=== PATIENT | female | born 1955 | race Caucasian/White ===

== ENCOUNTER → 2017-10-17 09:41 | Outpatient (CLI) | payer OTHER, SELFPAY ==
[2017-10-17 10:45] LABS: Thyroid Stim Hormone (TSH) 1.54 uIU/mL (0.358-3.74)
== END ==
PROVIDERS: Family Provider Family Medicine Geriatric Medicine; PCP Family Medicine Geriatric Medicine; Visit Provider Internal Medicine Endocrinology, Diabetes & Metabolism
DX: E05.00 Thyrotoxicosis with diffuse goiter without thyrotoxic crisis or storm (principal)
CPT/HCPCS: 36415; 84443

== ENCOUNTER → 2017-11-14 14:38 | Outpatient (CLI) | payer OTHER, SELFPAY ==
--- NOTE | 2017-11-14 14:41 | BI_ITS ---
MAMMOGRAPHY - BILATERAL SCREENING REASON FOR EXAM: Female, 62 years old. Routine annual screening examination. PERTINENT HISTORY: Non-contributory. TECHNIQUE: Digital bilateral breast tomás (3D mammographic acquisition) in the CC and MLO projections. 2-D mediolateral oblique (MLO) and craniocaudad (CC) views of both breasts were obtained. CAD: Full Field Digital Mammography with Computer Added Detection was performed. COMPARISON: Comparison is made with prior outside examination dated September 03, 2015. FINDINGS: Breast Composition: The breasts are heterogeneously dense, which may obscure small masses. There are no dominant masses or suspicious calcifications. No other significant abnormalities are identified. There has been no significant change since the prior study. BI/SCREENING MAMM (CAD), BILAT IMPRESSION: Stable bilateral screening mammogram. Yearly follow-up mammogram recommended. (A) ASSESSMENT CATEGORY: BIRADS Category 1: Negative. A letter regarding these results will be sent to the patient by the facility within 30 days. Approximately 10% of breast cancers are not detected by mammography. A normal mammogram should not delay biopsy of a clinically suspicious abnormality. [id number] Electronically Signed: Pedro Marcum MD at 9:29 EDT Tel [phone], Service support ,
== END ==
PROVIDERS: Family Provider Family Medicine Geriatric Medicine; PCP Family Medicine Geriatric Medicine; Visit Provider Obstetrics & Gynecology
DX: Z12.31 Encounter for screening mammogram for malignant neoplasm of breast (principal)
CPT/HCPCS: 77063; 77067

== ENCOUNTER → 2018-01-16 08:19 | Outpatient (CLI) | payer OTHER, SELFPAY ==
[2018-01-16 09:44] LABS: Thyroid Stim Hormone (TSH) 1.28 uIU/mL (0.358-3.74)
== END ==
PROVIDERS: Family Provider Family Medicine Geriatric Medicine; PCP Family Medicine Geriatric Medicine; Visit Provider Internal Medicine Endocrinology, Diabetes & Metabolism
DX: E05.00 Thyrotoxicosis with diffuse goiter without thyrotoxic crisis or storm (principal)
CPT/HCPCS: 36415; 84443

== ENCOUNTER → 2018-04-18 09:57 | Outpatient (CLI) | payer MEDICARE, OTHER, SELFPAY ==
[2018-04-18 11:37] LABS: Thyroid Stim Hormone (TSH) 1.45 uIU/mL (0.358-3.74)
== END ==
PROVIDERS: Family Provider Family Medicine Geriatric Medicine; PCP Family Medicine Geriatric Medicine; Referring Provider Internal Medicine Endocrinology, Diabetes & Metabolism; Visit Provider Internal Medicine Endocrinology, Diabetes & Metabolism
DX: E05.00 Thyrotoxicosis with diffuse goiter without thyrotoxic crisis or storm (principal)
CPT/HCPCS: 36415; 84443

== ENCOUNTER → 2018-06-21 14:01 | Outpatient (CLI) | payer MEDICARE, OTHER, SELFPAY ==
[2017-10-20 10:31] VITALS: BMI 29.6
[2018-06-21 15:55] LABS: Absolute Lymphocyte Count 2.52 X10^3/ul (0.83-4.51); Absolute Neutrophil Count 5.6 X10^3/uL (2.0-7.7); Basophil# 0.05 X10^3/uL; Basophil% 0.5 % (0-1); Eosinophil# 0.72 X10^3/uL; Eosinophils% 7.7 % (0-5); Hematocrit 43.6 % (37-47); Hemoglobin 14.4 g/dl (12.0-15.0); Lymphocyte # 2.52 X10^3/ul (4.0); Mean Corpuscular Hgb 31.2 pg (27.0-32.0); Mean Corpuscular Volume 94.4 fL (81-99); Mean Platelet Vol. 10.6 fl (6.2-12.0); Monocyte# 0.44 X10^3/uL; Monocyte% 4.7 % (0-10); Neutrophil # 5.58 X10^3/uL (2.7-7.7); Platelet Count 241 K/mm3 (150-450); RBC Distribution Width SD 44.7 fl (35.1-43.9); Red Blood Count 4.62 M/mm3 (4.2-5.4); White Blood Count 9.3 K/mm3 (4.4-11.0)
[2018-06-21 16:14] LABS: POSITIVE COUNT NO; POSITIVE DIFFERENTIAL NO; POSITIVE MORPHOLOGY NO
[2018-06-21 16:20] LABS: Vitamin D,25 Hydroxy 40.9 ng/mL (29.95-100.01)
[2018-06-21 16:33] LABS: AST(SGOT) 13 U/L (15-37); Alanine Aminotransfer ALT/SGPT 25 U/L (13-56); Albumin, Serum 3.9 g/dL (3.2-5.0); Alkaline Phosphatase 67 U/L (45-117); Anion Gap 7 (5-15); BUN 10 mg/dL (7-18); Calcium,Total 8.9 mg/dL (8.5-10.1); Chloride 104 mmol/L (98-107); Creatinine, Serum 0.91 mg/dL (0.55-1.02); EST Glomerular Filtration Rate 66 mL/min (>60); Est Glom Filt Rate - Afr Amer 80 mL/min (>60); Glucose 81 mg/dL (74-106); Potassium 4.3 mmol/L (3.5-5.1); Protein, Total 7.9 g/dL (6.4-8.2); Sodium Level 137 mmol/L (136-145); Thyroid Stim Hormone (TSH) 1.73 uIU/mL (0.358-3.74)
--- OUTSIDE RECORDS SUMMARY | 2018-08-07 18:30 | XMS RPT_ITS ---
:1955 Author Organization OHIP Support Name Relationship Address Phone OMID APONTE Unavailable [address] + [place] [address] RIGO, CHANDRA Unavailable [address] + [place] [address] R Unavailable Unavailable Unavailable FADI, OMID Unavailable [address] + [place] [address] RIGO, CHANDRA Unavailable [address] + [place] [address] R Unavailable Unavailable Unavailable FADI, OMID Unavailable [address] + [place] [address] RIGO, CHANDRA Unavailable [address] + [place] [address] R Unavailable Unavailable Unavailable FADI, OMID Unavailable [address] + [place] [address] RIGO, CHANDRA Unavailable [address] + [place] [address] R Unavailable Unavailable Unavailable FADI, OMID Unavailable [address] + [place] [address] RIGO, CHANDRA Unavailable [address] + [place] [address] R Unavailable Unavailable Unavailable FADI, OMID Unavailable [address] + [place] [address] IRGO, CHANDRA Unavailable [address] + [place] [address] R Unavailable Unavailable Unavailable FADI, OMID Unavailable [address] + [place] [address] RIGO, CHANDRA Unavailable [address] + [place] [address] R Unavailable Unavailable Unavailable OMID APONTE Unavailable [address] + [place] [address] RIGOCHANDRA Unavailable [address] [facility] + [place] [address] R Unavailable Unavailable Unavailable Care Team Providers Name Role Phone Annita Reeder Admitting Unavailable Annita Reeder Attending Unavailable No Doctor Assigned, Nodr Primary Care Unavailable Saul, Yonatan Chi Attending Unavailable Saul, Yonatan Chi Primary Care Unavailable Saul, Yonatan Chi Attending Unavailable Saul, Yonatan Chi Referring Unavailable Saul, Yonatan Chi Primary Care Unavailable NOVY, ANNITA Attending Unavailable NOVY, ANNITA Referring Unavailable Saul, Yonatan Chi Primary Care Unavailable Chante Galvin Attending Unavailable Saul, Yonatan Chi Referring Unavailable Saul, Yonatan Chi Primary Care Unavailable Chante Galvin Attending Unavailable Saul, Yonatan Chi Primary Care Unavailable NOVY, ANNITA Attending Unavailable NOVY, ANNITA Referring Unavailable Saul, Yonatan Chi Primary Care Unavailable NOVANNITA Graff Attending Unavailable NOVY, ANNITA Referring Unavailable Saul, Yonatan Chi Primary Care Unavailable NOVY, ANNITA Attending Unavailable NOVY, ANNITA Referring Unavailable Saul, Yonatan Chi Primary Care Unavailable PROBLEMS PROBLEMS DATE TYPE CONDITION / CODE ATTENDING STATUS SOURCE 07/26/2018 Unknown E05.00 - ANNITA REEDER 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 Hospital without thyrotoxic Repository crisis or storm / E05.00(ICD-10) 10/20/2017 Unknown Z01.419 - Encounter Jeremias Galvin for gynecological [facility] (general) (routine) Repository without abnormal findings / Z01.419(ICD-10) PROCEDURES PROCEDURES No Procedure Records FoundRESULTS RESULTS THYROID STIM HORMONE Collected: 07/26/2018 Status: F Source: [place] (TSH) 11:05 AM [facility] REPOSITORY TYPE CODE TESTS RESULT OUT OF RANGE REFERENCE UNITS LAB L501.9520 0.358-3.74 uIU/mL Normal TSH 1.52 Performed By: #### L501.9520 #### [place] [facility] [place] [place] Laboratory [address] [place], [address] LUNG Observed: 06/28/2018 Status: F Source: [place] SCREENING 6:38 AM [facility] REPOSITORY [facility] Imaging Services [address] [place] [address] Lung Screening MR#: [id number] Acct: [id number] Name: JOSE ENRIQUE APONTE Rep #: [id number] : 1955 F 63 From: Jeronimo Delarosa MD PCP: Yonatan Davila MD, Chi Status: REG CLI Study: Low Dose CT Lung Screening Date of Exam: 06/28/18 Exam# [id number] Ordering Dr: Yonatan Davila MD STUDY: LOW DOSE CT LUNG CANCER SCREENING REASON FOR EXAM: Female, 63 years old. Tobacco abuse, prior smoker one pack per day 40 years. Asthma. Screening. RADIATION DOSAGE (If Supplied By Facility): CTDIvol = ( 3.02 ) mGy, DLP = ( 107.59 ) mGycm TECHNIQUE: No contrast was administered. Low dose technique was utilized (average mAS-38 and kVp 120). 1.25 mm axial source images with a slice interval of 1.25- mm were reconstructed in lung windows. Coronal and sagittal 2-D MPR Nodule measured using lung windows on PACS and/or independent workstation with automated measurement of minimum and maximum diameter. Nodule measurement reported as average diameter rounded to the nearest whole number. Growth is defined as an increase ins size of greater than 1.5 mm. COMPARISON: CT chest 07/10/2015 FINDINGS: Total lung nodules (excluding granulomas): There are a few scattered tiny pulmonary nodules. Calcified pulmonary nodule left upper lobe series 2 image 66, 3 mm. Right lower lobe anterior segment calcified pulmonary nodule 3 mm. A few additional smaller noncalcified pulmonary nodules bilaterally. No frankly suspicious lesions. Emphysema: There is generalized pulmonary hyperlucency consistent with underlying COPD without raj features of centrilobular or paraseptal emphysema. There is mild bronchial wall thickening in the upper and lower lungs, chronic inflammatory. Impression of subtle tiny groundglass centrilobular pulmonary nodules in the upper lungs, a few in the lower lungs, potentially reflecting hypersensitivity pneumonitis. Small areas of scar with subsegmental atelectasis in the right middle lobe and lingula. Endobronchial lesion: There are no endobronchial lesions. Aorta: Nonaneurysmal ectasia of the ascending aorta and proximal arch measuring up to 3.4 cm. Moderate arch atherosclerosis. Coronary arteries: Three-vessel coronary after acrotic calcifications. Heart: No cardiomegaly. Pulmonary artery: Nondilated. Mediastinal nodes: Several small chronic-appearing lymph nodes of the mediastinum, not pathologically enlarged. No apparent hilar lymphadenopathy. Other chest and abdominal findings: No other significant thoracic abnormalities are evident. CT/Low Dose CT Lung Screening IMPRESSION: ACR Lung RADS Category 2 (benign appearance, less than 1% chance of malignancy). A few tiny scattered pulmonary nodules are present, solid or calcified, less than 3 mm. Subtle impression of multiple tiny groundglass centrilobular pulmonary nodules in particular within the upper lungs, chronic appearance, possibly reflecting sequela of hypersensitivity pneumonitis, possibly associated with sequela of smoking history, and probably associated with the patient's mild chronic-appearing bronchial wall thickening. Prominent three-vessel coronary calcifications. Nonaneurysmal ectasia of the ascending aorta and proximal arch, less than 4 cm. Recommendation: Continue annual low dose screening chest CT. IMPORTANT NOTES FOR USE: ACR Lung-RADS Version 1.0 Assessment Categories Release Date: November 05, 2013 Category: Coded 0-4 bases on nodule(s) with highest degree of suspicion. Negative screen is defined as categories 1 and 2; a positive screen is defined as categories 3 and 4. Category 3 and 4A nodules that are unchanged on interval CT should be coded as category 2, and individuals returned to screening in 12 months. Category 4X: Category 3 or 4 nodules with additional imaging findings that increase the suspicion of lung cancer, such as spiculation, GGN that doubles in size in 1 year, enlarged lymph notes, etc. Category Modifiers: S (significant finding unrelated to lung cancer) and C (prior history of treated lung cancer) may be added to the 0-4 Lung-RADS Electronically Signed: Jeronimo Delarosa MD at 17:01 EST Tel , Service support , CC: Yonatan Davila MD Police Surgeon: Signed CBC W/DIFF, AUTOMATED Collected: 06/21/2018 Status: F Source: [place] 2:05 PM [facility] REPOSITORY TYPE CODE TESTS RESULT OUT OF RANGE REFERENCE UNITS LAB L100.1000 4.4-11.0 K/mm3 Normal WBC 9.3 LAB L100.1200 4.2-5.4 M/mm3 Normal RBC 4.62 LAB L100.1300 12.0-15.0 g/dl Normal HGB 14.4 LAB L100.1400 37-47 % Normal HCT 43.6 LAB L100.1500 81-99 fL Normal MCV 94.4 LAB L100.1600 27.0-32.0 pg Normal MCH 31.2 LAB L100.1700 32-36 g/gl Normal MCHC 33.0 LAB L100.1810 11.6-14.6 % Normal RDW CV 13.0 LAB L100.1820 35.1-43.9 fl High RDW SD 44.7 LAB L100.1900 150-450 K/mm3 Normal PLT 241 LAB L100.2000 6.2-12.0 fl Normal MPV 10.6 LAB L100.2100 47-70 % Normal NEUT% 60.0 LAB L100.2200 19-41 % Normal LY% 27.0 LAB L100.2300 0-10 % Normal MONO% 4.7 LAB L100.2400 0-5 % High EO% 7.7 LAB L100.2500 0-1 % Normal BASO% 0.5 LAB L100.2550 0.0-0.9 % Normal IM GRAN % 0.100 Result Comment: IG% - Immature Granulocytes (promyelocytes, myelocytes and metamyelocytes) > 1% indicates that a LEFT SHIFT is Present. LAB L100.2620 2.0-7.7 X10 3/uL Normal Absolute Neut 5.6 LAB L100.2720 0.83-4.51 X10 3/ul Normal Absolute Lymph 2.52 Performed By: #### L100.0100 #### [facility] Laboratory [address], [place], [id number] VITAMIN D,25 HYDROXY Collected: 06/21/2018 Status: F Source: [place] 2:05 PM [facility] REPOSITORY TYPE CODE TESTS RESULT OUT OF RANGE REFERENCE UNITS LAB L506.1000 29.95-100.01 ng/mL Normal Vitamin D 40.9 25-OH Result Comment: Vitamin D 25(OH) Status Range Deficiency <20 ng/mL (50nmol/L) Insuffciency 20 - 30 ng/mL (50 - 75 nmol/L) Sufficiency 30 - 100 ng/mL (75 - 250 nmol/L) Toxicity >100 ng/mL (>250 nmol/L) Performed By: #### L506.1000 #### [facility] Laboratory [address] [place], [address] COMPREHENSIVE METABOLIC Collected: 06/21/2018 Status: F Source: [place] [facility] 2:05 PM [facility] REPOSITORY TYPE CODE TESTS RESULT OUT OF RANGE REFERENCE UNITS LAB L501.0100 74-106 mg/dL Normal GLU 81 Result Comment: Please note revised GLUCOSE reference range effective 2017. LAB L501.1000 7-18 mg/dL Normal BUN 10 LAB L501.1100 0.55-1.02 mg/dL Normal CREAT,SERUM 0.91 Result Comment: The validity of the calculated GFR AND GFRAA in patients over 70 years has not been determined. Clinical correlation is essential. LAB L501.1110 >60 mL/min Normal EST GFR 66 Result Comment: Non- GFR Calc LAB L501.1115 >60 mL/min Normal EST GFR - AA 80 Result Comment: GFR Calc LAB L501.1300 10-20 RATIO Normal BUN/CRE 11.0 LAB L501.1500 6.4-8.2 g/dL T Normal PROT 7.9 LAB L501.1800 3.2-5.0 g/dL Normal ALB 3.9 LAB L501.1950 2.2-4.2 g/dL Normal GLOB 4.0 LAB L501.2000 0.9-2.4 RATIO Normal A/G 1.0 LAB L501.2200 8.5-10.1 mg/dL CA Normal 8.9 LAB L501.4100 15-37 U/L Low AST 13 LAB L501.4305 45-117 U/L Normal ALK P 67 LAB L501.4405 13-56 U/L Normal ALT 25 LAB L501.4600 0.20-1.00 mg/dL T Normal BILI 0.50 LAB L501.5300 136-145 mmol/L NA Normal 137 LAB L501.5600 3.5-5.1 mmol/L K Normal 4.3 LAB L501.5900 98-107 mmol/L CL Normal 104 LAB L501.6100 21.0-32.0 mmol/L Normal CO2 26.0 LAB L501.6200 5-15 Normal GAP 7 Performed By: #### L500.4050, L501.9520 #### [facility] Laboratory [address] [place], [address] THYROID STIM HORMONE Collected: 06/21/2018 Status: F Source: [place] (TSH) 2:05 PM [facility] REPOSITORY TYPE CODE TESTS RESULT OUT OF RANGE REFERENCE UNITS LAB L501.9520 0.358-3.74 uIU/mL Normal TSH 1.73 Performed By: #### L500.4050, L501.9520 #### [facility] Laboratory [facility] [place], [address] THYROID STIM HORMONE Collected: 04/18/2018 Status: F Source: [place] (TSH) 10:18 AM [facility] REPOSITORY TYPE CODE TESTS RESULT OUT OF RANGE REFERENCE UNITS LAB L501.9520 0.358-3.74 uIU/mL Normal TSH 1.45 Performed By: #### L501.9520 #### [facility] [place], [address] THYROID STIM HORMONE Collected: 01/16/2018 Status: F Source: [place] (TSH) 8:26 AM [facility] REPOSITORY TYPE CODE TESTS RESULT OUT OF RANGE REFERENCE UNITS LAB L501.9520 0.358-3.74 uIU/mL Normal TSH 1.28 Performed By: #### L501.9520 #### [facility] [address] [place], [address] SCREENING MAMM (CAD), Observed: 11/14/2017 Status: F Source: [place] BIL[place] 2:41 PM [facility] REPOSITORY [facility] Imaging Services [address] [place] [address] SCREENING MAMM (CAD), BILAT MR#: [id number] Acct: [id number] Name: JOSE ENRIQUE APONTE Rep #: [id number] : 1955 F 62 From: Pedro Marcum MD PCP: Yonatan Davila MD, Chi Status: REG CLI Study: SCREENING MAMM (CAD), BILAT Date of Exam: 11/14/17 Exam# [id number] Ordering Dr: Chante Galvin MD MAMMOGRAPHY - BILATERAL SCREENING REASON FOR EXAM: Female, 62 years old. Routine annual screening examination. PERTINENT HISTORY: Non-contributory. TECHNIQUE: Digital bilateral breast tomás (3D mammographic acquisition) in the CC and MLO projections. 2-D mediolateral oblique (MLO) and craniocaudad (CC) views of both breasts were obtained. CAD: Full Field Digital Mammography with Computer Added Detection was performed. COMPARISON: Comparison is made with prior outside examination dated September 03, 2015. FINDINGS: Breast Composition: The breasts are heterogeneously dense, which may obscure small masses. There are no dominant masses or suspicious calcifications. No other significant abnormalities are identified. There has been no significant change since the prior study. BI/SCREENING MAMM (CAD), BILAT IMPRESSION: Stable bilateral screening mammogram. Yearly follow-up mammogram recommended. (A) ASSESSMENT CATEGORY: BIRADS Category 1: Negative. A letter regarding these results will be sent to the patient by the facility within 30 days. Approximately 10% of breast cancers are not detected by mammography. A normal mammogram should not delay biopsy of a clinically suspicious abnormality. [id number] Electronically Signed: Pedro Marcum MD at 9:29 EDT Tel [phone], Service support , CC: Chante Galvin MD; Yonatan Davila MD Police Surgeon: Signed STREET [employer]CH[employer] OFFICE VISIT Observed: 10/20/2017 Status: F Source: [place] REPORT 11:03 AM [facility] 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) Chief Complaint: Est annual Bonding Agent Required: No Is patient in pain?: No Allergies No Known Allergies Allergy (Unverified 10/20/17 10:32) Medications cholecalciferol (vitamin D3) 1,000 unit capsule 1,000 unit PO QDAY 10/20/17 [History Confirmed 10/20/17] methimazole 5 mg tablet 5 mg PO QDAY 10/20/17 [History Confirmed 10/20/17] Is last menstrual period known: No Post menopausal: Yes Patient : No : No PFSH Surgical History History of delivery (Acute) Family History Mother Cancer brain Father Heart disease Congestive heart disease Social History Smoking Status: Never smoker alcohol intake: current details: social substance use type: does not use caffeine: Yes frequency: 5-6 times per week seatbelt use: always do you feel safe at home: Yes additional social history: Omid- Both are retired Pregancy History 3 Elective abortions Hx Para 1 Spontaneous abortions Past Pregnancies Del. 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 dtr has one son- 4 years old, marlon Last PAP: 2017 normal History of abnormal PAP: no Last mammogram: due History of abnormal mammogram: Colon cancer screening: next year with quynh Other preventative health care screenings: per dr davila Female Reproductive History Questions: Metorrhagia: No, Sexually active: No ROS Const Constitutional: Reports as per HPI; denies poor appetite, fatigue, increased appetite, weight gain or weight loss Cardio Card: Denies chest pain Resp Resp: Denies dyspnea or cough GI GI: Reports as per HPI; denies bloating, abdominal pain, constipation, vomiting or nausea : Reports as per HPI and other; denies blood in urine, vaginal odor, vaginal itching, vaginal dryness, vaginal discharge, urinary urgency, urinary incontinence, urinary frequency, pelvic pain, painful urination, difficulty urinating, prolapse symptoms or nipple discharge Skin Skin/Breast: Denies breast pain, breast skin changes, nipple discharge, breast lump or changing lesions Exam Const General: cooperative, healthy appearing, comfortable, no acute distress, well developed, well groomed [facility] Head: normal to inspection, normocephalic Ears: hearing grossly normal bilaterally, external ears normal Nose: external nose normal Face and sinus: normal facial exam Neck Neck: normal visual inspection, full ROM, no lymphadenopathy Thyroid: thyroid normal Chest Chest palpation AND inspection: normal inspection of the chest Breast inspection: normal inspection of the breasts, normal inspection of the axillae Breast palpation: normal palpation of the breasts, normal palpation of the axillae, no axillary lymphadenopathy Resp Effort AND Inspection: normal respiratory effort GI Inspection: normal to inspection, non-distended Palpation: no guarding, soft, no hepatosplenomegaly General: bladder normal to palpation External Female Exam: normal external appearance, normal appearance of the urethra, no lesions Urethra: normal appearance of the urethra, normal palpation Speculum Exam - Vagina: normal appearance of the vagina, normal vaginal discharge Speculum Exam - Cervix: normal appearance of the cervix, no cervical discharge, no lesions, nontender Bimanual Exam- Vagina AND Uterus: No cervical tenderness, normal bimanual exam, uterine size normal, bladder normal to palpation, uterine mobility normal, uterine consistency normal, uterus non-tender, no cervical motion tenderness Bimanual Exam- Adnexa, other: normal adnexae, no adnexal masses, adnexae non-tender Skin General: no rashes or lesions noted Neuro General: alert, moves all extremities, no focal motor deficits Extrem General: no pedal edema, normal to inspection Psych Appearance: grossly normal Mental Status: mental status grossly normal Affect: normal affect Speech and Movement: speech and movement normal Attitude: cooperative Assessment AND Plan Problems 1. Encounter for gynecological examination without abnormal finding Z01.419 Plan Cervical cancer screening: up to date 2016 Breast cancer screening: mamm ordered other health maintenance examination reviewed and up to date. Encouraged maintenance of a healthy weight and active lifestyle and handout given. Calcium/vitamin D recommendations provided. Annual exam handout including recommendations for good health guidelines and basic screening information given. Problem list up to date, see problem list details for any additional plan information. Follow up in one year for annual health maintenance exam or sooner if needed. Orders Orders: Coding Level of Care Code Off vis,est,prev 40-64yrs Diagnoses Encounter for gynecological examination without abnormal finding Z01.419 Gynecological examination findings: abnormal findings ABSENT 10/20/17 1103 <Electronically signed by Chante Galvin MD> Date Chante Galvin MD Cosigner Signature: Date (if applicable) CC: THYROID STIM HORMONE Collected: 10/17/2017 Status: F Source: [place] (TSH) 9:46 AM [facility] REPOSITORY TYPE CODE TESTS RESULT OUT OF RANGE REFERENCE UNITS LAB L501.9520 0.358-3.74 uIU/mL Normal TSH 1.54 Performed By: #### L501.9520 #### [facility] [address] [place], [address] US THYROID Observed: 10/17/2017 Status: F Source: [facility] 8:47 AM [facility] REPOSITORY Exam Date/Time: 10/17/2017 09:14 EDT Reason for Exam: NONTOXIC MULTINODULAR GOITER Report THYROID ULTRASOUND FROM 10/17/2017. COMPARISON: Most recent comparison is 10/11/2016. Comparison also made to 04/17/2015. FINDINGS: Mandujano scale and color Doppler performed. The right thyroid is 5.5 x 2.6 x 2.1 cm. The thyroid gland is heterogeneous in echotexture. There is an isoechoic to hyperechoic nodule in the inferior right gland measuring 9 mm maximally. The hypoechoic mass previously seen posterior inferior right gland measuring up to 1.5 cm is not clearly demonstrated. An isoechoic nodule is seen in the mid right gland which measures up to 8 mm in diameter previously measuring 9 mm. More inferiorly, an isoechoic nodule measures 9 mm previously measuring 9 mm. No developing hypoechoic solid masses in the right thyroid. The left thyroid gland measures 4.4 x 2.2 x 2.1 cm. It is heterogeneous in echotexture without a discrete mass. Thyroid isthmus is unremarkable. IMPRESSION: 1. Heterogeneous thyroid gland with small isoechoic to slightly hyperechoic nodules in the mid and inferior right gland. These are TI- RADS 3 lesions which does not require specific imaging follow up as size is of less than 1.5 cm. 2. Previously seen 1.5 cm hypoechoic mass at the inferior pole the right gland is either resolved or significantly smaller now measuring no greater than 9 mm. No specific follow up required at this size. 3. No new findings. FINAL REPORT Dictated: 10/17/2017 12:42 pm Chavez Wright MD Signed (Electronic Signature): 10/17/2017 12:42 pm Signed by: Chavez Wright MD Technologist: SAAD ALLERGIES ALLERGIES DATE TYPE / CODE NAME / CODE REACTION SEVERITY SOURCE 10/20/2017 Drug No Known Unknown [facility] Allergy/416 Allergies/Y99408 Hospital 710568(SNOM 0388(RXNORM) Repository ED CT) Drug/441982 No Known [facility] 003(SNOMED Allergies [facility] CT) System Repository ENCOUNTERS ENCOUNTERS ADMIT/DISCHARGE ACCOUNT ADMITTING ENCOUNTER LOCATION SOURCE NUMBER CLASS 07/26/2018 [id number] Ambulatory [facility] ing:LAB Repository 06/28/2018 [id number] [facility] ing:CT Repository 06/21/2018 [id number] [facility] ing:POLAB3 Repository 04/18/2018 [id number] [facility] ing:LAB Repository 01/16/2018 [id number] Ambulatory [place] [facility] ing:LAB Repository 11/14/2017 [id number] [facility] [place] [facility] Repository 10/20/2017/10/21/19 [id number] Ambulatory BMS[facility]:B [place] [address] [facility] Hospital Repository 10/17/2017 [id number] Ambulatory [place] [facility] ing:LAB Repository 10/17/2017/10/18/19 [id number] Annita Reeder [facility] [address] [facility] ing:SH.[facility] Repository PAYERS PAYERS ENCOUNTER GUARANTOR PAYER SUBSCRIBER SOURCE 07/26/2018 OMID [id number] Primary JOSE ENRIQUE S [place] [address] Insurance:MEDICARE GERBERDOB: [place], [place] PART A [facility] [id number] Hospital [address]Unu: (330) Number: Repository [phone] () [id number] Date:2018-07-26 07/26/2018 Secondary JOSE ENRIQUE S [place] Insurance:AARPPolicy GERBERDOB: Community Number: [id number] Hospital [id number] Repository Date:[id number], [place] [address]DH: 07/26/2018 Tertiary NOT GIVENUNK [place] Insurance:SELF PAY [facility] Hospital Number: Effective Repository Date:2018-07-26 06/28/2018 OMID [id number] Primary JOSE ENRIQUE S [place] [address] Insurance:MEDICARE GERBERDOB: [place], [place] PART A [facility] [id number] Hospital [address]Qcn: (330) Number: Repository [phone] (HP) [id number] Date:2018-06-21 06/28/2018 Secondary JOSE ENRIQUE S [place] Insurance:AARPPolicy GERBERDOB: Community Number: [id number] Hospital [id number] Repository Date:[id number] [address]YZ: 06/28/2018 Tertiary NOT GIVENUNK [place] Insurance:SELF PAY [facility] Effective Repository Date:2018-06-21 06/21/2018 OMID TAYLOR Primary JOSE ENRIQUE S [place] [address] Insurance:MEDICARE [place] BPolicy [id number] 66171Xha: (330) Number: Repository [phone] () [id number] Date:2018-06-21 06/21/2018 Secondary JOSE ENRIQUE S [place] Insurance:AARPPolicy GERBERDOB: Community Number: [id number] Hospital [id number] Repository Date:0840-08-30RZ [address], [place] [address]DA: 06/21/2018 Tertiary NOT GIVENUNK [place] Insurance:SELF PAY [facility] Number: Effective Repository Date:2018-06-21 04/18/2018 OMID [id number] Primary JOSE ENRIQUE S [place] Insurance:MEDICARE GERBERDOB: [facility], [place] PART A [facility] [id number] Hospital 95409Awh: (330) Number: Repository [phone] () [id number] Date:2018-04-18 04/18/2018 Secondary JOSE ENRIQUE S [place] Insurance:AARPPolicy GERBERDOB: Community Number: [id number] Hospital [id number] Repository Date:6411-14-23GA [address], [place] [address]SL: 04/18/2018 Tertiary NOT GIVENUNK [place] Insurance:[facility]LF [facility]Y [facility] Number: Effective Repository Date:2018-04-18 01/16/2018 OMID TAYLOR Primary JOSE ENRIQUE S [place] Insurance:AULTCAREPol GERBERDOB: [place] icy Number: [id number] Hospital 66102Kwd: (524) [id number] Repository [phone] () Date:8612-59-82PF [address] [place] [address]GO: 01/16/2018 Secondary NOT GIVENUNK [place] Insurance:SELF PAY [facility] Number: Effective Repository Date:2018-01-16 11/14/2017 OMID [id number] Primary JOSE ENRIQUE GERBERDOB: [place] [address] Insurance:AULTCAREPol [id number] [place] Number: Hospital [id number]: 330 [id number] Repository [phone] (HP) Date:7196-54-52HP [address] [place] [address]LZ: 11/14/2017 Secondary NOT GIVENUNK [place] Insurance:SELF PAY [facility] Number: Effective Repository Date:2017-10-21 10/20/2017 OMID [id number] Primary JOSE ENRIQUE GERBERDOB: [place] [address] [place] Insurance:AULTCAREPol [id number] [place] icy Number: Hospital 386[address]Ion: 330 [id number] Repository [phone] () Date:4896-91-00HG [address] [place] [address]ST: 10/20/2017 Secondary NOT GIVENUNK [place] Insurance:SELF PAY [facility] Number: Effective Repository Date:2017-10-20 10/17/2017 OMID [id number] Primary JOSE ENRIQUE GERBERDOB: [place] Insurance:AULTCAREPol [id number] [place] icy Number: Hospital 514[address]Mzy: 330 [id number] Repository [phone] (HP) Date:3344-28-89HX [address] [address]CG: 10/17/2017 Secondary NOT GIVENUNK [place] Insurance:SELF PAY [facility] Number: Effective Repository Date:2017-10-17 10/17/2017 JOSE ENRIQUE S Primary JOSE ENRIQUE S Rastafarian GERBERDOB: Insurance:INSURANCE GERBERDOB: [facility] [id number] [facility] [id number] System COUNTRY CLUB Number: Effective COUNTRY CLUB Repository [place] NEAL Date:2017-04-28 - [place] [id number]: [id number] [phone]: Name:Matt GARVIN (FC) [address] ()Tel: [phone]: [phone]
== END ==
PROVIDERS: Family Provider Family Medicine Geriatric Medicine; PCP Family Medicine Geriatric Medicine; Visit Provider Family Medicine Geriatric Medicine
DX: E55.9 Vitamin D deficiency, unspecified (principal); R53.83 Other fatigue
CPT/HCPCS: 36415; 80053; 82306; 84443; 85025

== ENCOUNTER → 2018-06-28 06:35 | Outpatient (CLI) | payer MEDICARE, OTHER, SELFPAY ==
--- NOTE | 2018-06-28 06:38 | CT_ITS ---
STUDY: LOW DOSE CT LUNG CANCER SCREENING REASON FOR EXAM: Female, 63 years old. Tobacco abuse, prior smoker one pack per day 40 years. Asthma. Screening. RADIATION DOSAGE (If Supplied By Facility): CTDIvol = ( 3.02 ) mGy, DLP = ( 107.59 ) mGycm TECHNIQUE: No contrast was administered. Low dose technique was utilized (average mAS-38 and kVp 120). 1.25 mm axial source images with a slice interval of 1.25-mm were reconstructed in lung windows. Coronal and sagittal 2-D MPR Nodule measured using lung windows on PACS and/or independent workstation with automated measurement of minimum and maximum diameter. Nodule measurement reported as average diameter rounded to the nearest whole number. Growth is defined as an increase ins size of greater than 1.5 mm. COMPARISON: CT chest 07/10/2015 FINDINGS: Total lung nodules (excluding granulomas): There are a few scattered tiny pulmonary nodules. Calcified pulmonary nodule left upper lobe series 2 image 66, 3 mm. Right lower lobe anterior segment calcified pulmonary nodule 3 mm. A few additional smaller noncalcified pulmonary nodules bilaterally. No frankly suspicious lesions. Emphysema: There is generalized pulmonary hyperlucency consistent with underlying COPD without raj features of centrilobular or paraseptal emphysema. There is mild bronchial wall thickening in the upper and lower lungs, chronic inflammatory. Impression of subtle tiny groundglass centrilobular pulmonary nodules in the upper lungs, a few in the lower lungs, potentially reflecting hypersensitivity pneumonitis. Small areas of scar with subsegmental atelectasis in the right middle lobe and lingula. Endobronchial lesion: There are no endobronchial lesions. Aorta: Nonaneurysmal ectasia of the ascending aorta and proximal arch measuring up to 3.4 cm. Moderate arch atherosclerosis. Coronary arteries: Three-vessel coronary after acrotic calcifications. Heart: No cardiomegaly. Pulmonary artery: Nondilated. Mediastinal nodes: Several small chronic-appearing lymph nodes of the mediastinum, not pathologically enlarged. No apparent hilar lymphadenopathy. Other chest and abdominal findings: No other significant thoracic abnormalities are evident. CT/Low Dose CT Lung Screening IMPRESSION: ACR Lung RADS Category 2 (benign appearance, less than 1% chance of malignancy). A few tiny scattered pulmonary nodules are present, solid or calcified, less than 3 mm. Subtle impression of multiple tiny groundglass centrilobular pulmonary nodules in particular within the upper lungs, chronic appearance, possibly reflecting sequela of hypersensitivity pneumonitis, possibly associated with sequela of smoking history, and probably associated with the patient's mild chronic-appearing bronchial wall thickening. Prominent three-vessel coronary calcifications. Nonaneurysmal ectasia of the ascending aorta and proximal arch, less than 4 cm. Recommendation: Continue annual low dose screening chest CT. IMPORTANT NOTES FOR USE: ACR Lung-RADS Version 1.0 Assessment Categories Release Date: November 05, 2013 Category: Coded 0-4 bases on nodule(s) with highest degree of suspicion. Negative screen is defined as categories 1 and 2; a positive screen is defined as categories 3 and 4. Category 3 and 4A nodules that are unchanged on interval CT should be coded as category 2, and individuals returned to screening in 12 months. Category 4X: Category 3 or 4 nodules with additional imaging findings that increase the suspicion of lung cancer, such as spiculation, GGN that doubles in size in 1 year, enlarged lymph notes, etc. Category Modifiers: S (significant finding unrelated to lung cancer) and C (prior history of treated lung cancer) may be added to the 0-4 Lung-RADS Electronically Signed: Jeronimo Delarosa MD at 17:01 EST Tel , Service support ,
--- OUTSIDE RECORDS SUMMARY | 2018-09-29 07:37 | XMS RPT_ITS ---
:1955 Author Organization OHIP Support Name Relationship Address Phone OMID APONTE Unavailable [address] + [place] [address] RIGO, CHANDRA Unavailable [address] + [place] [address] R Unavailable Unavailable Unavailable FADI, OMID Unavailable [address] + [place] [address] RIGO, CHANDRA Unavailable [address] + [place] [address] R Unavailable Unavailable Unavailable FADI, OMID Unavailable [address] + [place] [address] RIGO, CHANDRA Unavailable [address] + [place] [address] R Unavailable Unavailable Unavailable FADI, OMID Unavailable [address] + [place] [address] RIGO, CHANDRA Unavailable [address] + [place] [address] R Unavailable Unavailable Unavailable FADI, OMID Unavailable [address] + [place] [address] RIGO, CHANDRA Unavailable [address] + [place] [address] R Unavailable Unavailable Unavailable FADI, OMID Unavailable [address] + [place] [address] RIGO, CHANDRA Unavailable [address] + [place] [address] R Unavailable Unavailable Unavailable FADI, OMID Unavailable [address] + [place] [address] RIGO, CHANDRA Unavailable [address] + [place] [address] R Unavailable Unavailable Unavailable OMID APONTE Unavailable [address] + [place] [address] RIGOCHANDRA Unavailable [address] [facility] + [place] [address] R Unavailable Unavailable Unavailable Care Team Providers [...] - ANNITA REEDER 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 Hospital without thyrotoxic Repository crisis or storm / E05.00(ICD-10) 10/20/2017 Unknown Z01.419 - Encounter Jeremias Galvin for gynecological [facility] (general) (routine) Repository without abnormal findings / Z01.419(ICD-10) PROCEDURES PROCEDURES No Procedure Records FoundRESULTS RESULTS THYROID STIM HORMONE Collected: 07/26/2018 Status: F Source: [place] (TSH) 11:05 AM [facility] REPOSITORY TYPE CODE TESTS RESULT OUT OF RANGE REFERENCE UNITS LAB L501.9520 0.358-3.74 uIU/mL Normal TSH 1.52 Performed By: #### L501.9520 #### [place] [facility] [address] [place], [address] LUNG Observed: 06/28/2018 Status: F Source: [place] SCREENING 6:38 AM [facility] REPOSITORY [facility] Imaging Services [address] [place] [address] Lung Screening MR#: [id number] Acct: [id number] Name: JOSE ENRIQUE APONTE Rep #: [id number] : 1955 F 63 From: Jeronimo Delarosa MD PCP: Yonatan Davila MD, Chi Status: REG CLI Study: Low Dose CT Lung Screening Date of Exam: 06/28/18 Exam# [id number] Ordering Dr: Yonatan Davila MD STUDY: LOW [...] Service support , CC: Yonatan Davila MD Clinical Tech: Signed CBC W/DIFF, AUTOMATED Collected: 06/21/2018 Status: F Source: [place] 2:05 PM [facility] REPOSITORY TYPE CODE TESTS RESULT OUT OF [...] Lymph 2.52 Performed By: #### L100.0100 #### [facility] [address] [place], [place], [address] VITAMIN D,25 HYDROXY Collected: 06/21/2018 Status: F Source: [place] 2:05 PM [facility] REPOSITORY TYPE CODE TESTS RESULT OUT OF RANGE REFERENCE UNITS LAB L506.1000 29.95-100.01 ng/mL Normal Vitamin D 40.9 25-OH Result Comment: Vitamin D 25(OH) Status Range Deficiency <20 ng/mL (50nmol/L) Insuffciency 20 - 30 ng/mL (50 - 75 nmol/L) Sufficiency 30 - 100 ng/mL (75 - 250 nmol/L) Toxicity >100 ng/mL (>250 nmol/L) Performed By: #### L506.1000 #### [facility] [address] [place], [address] COMPREHENSIVE METABOLIC Collected: 06/21/2018 Status: F Source: [place] [facility] 2:05 PM [facility] REPOSITORY TYPE CODE TESTS RESULT OUT OF [...] 7 Performed By: #### L500.4050, L501.9520 #### [facility] [address] [place], [address] THYROID STIM HORMONE Collected: 06/21/2018 Status: F Source: [place] (TSH) 2:05 PM [facility] REPOSITORY TYPE CODE TESTS RESULT OUT OF RANGE REFERENCE UNITS LAB L501.9520 0.358-3.74 uIU/mL Normal TSH 1.73 Performed By: #### L500.4050, L501.9520 #### [facility] [place], [address] THYROID STIM HORMONE Collected: 04/18/2018 Status: F Source: [place] (TSH) 10:18 AM [facility] REPOSITORY TYPE CODE TESTS RESULT OUT OF RANGE REFERENCE UNITS LAB L501.9520 0.358-3.74 uIU/mL Normal TSH 1.45 Performed By: #### L501.9520 #### [facility] [place], [address] THYROID STIM HORMONE Collected: 01/16/2018 Status: F Source: [place] (TSH) 8:26 AM [facility] REPOSITORY TYPE CODE TESTS RESULT OUT OF RANGE REFERENCE UNITS LAB L501.9520 0.358-3.74 uIU/mL Normal TSH 1.28 Performed By: #### L501.9520 #### [facility] [address] [place], [address] SCREENING MAMM (CAD), Observed: 11/14/2017 Status: F Source: [place] BILAT 2:41 PM [facility] REPOSITORY [facility] Imaging Services [address] [place] [address] SCREENING MAMM (CAD), BILAT MR#: [id number] Acct: [id number] Name: JOSE ENRIQUE AP[place] Rep #: [id number] : 1955 F 62 From: Pedro Marcum MD PCP: Yonatan Davila MD, Chi Status: REG CLI Study: SCREENING MAMM (CAD), BILAT Date of Exam: 11/14/17 Exam# [id number] Ordering Dr: Chante Galvin MD MAMMOGRAPHY - [...] delay biopsy of a clinically suspicious abnormality. 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, [address] [place] THYROID Observed: 10/17/2017 Status: F Source: [facility] 8:47 AM [facility] REPOSITORY Exam Date/Time: 10/17/2017 09:14 EDT [...] SEVERITY SOURCE 10/20/2017 Drug No Known Unknown [facility] Allergy/416 Allergies/D79054 Hospital 389857(SNOM 0388(RXNORM) Repository ED CT) Drug/756593 No Known Christian 003(SNOMED Allergies [facility] CT) System Repository ENCOUNTERS ENCOUNTERS ADMIT/DISCHARGE ACCOUNT ADMITTING ENCOUNTER LOCATION SOURCE NUMBER CLASS 07/26/2018 [id number] Ambulatory [facility] ing:LAB Repository 06/28/2018 [id number] [facility] ing:CT Repository 06/21/2018 [id number] [facility] ing:POLAB3 Repository 04/18/2018 [id number] [facility] ing:LAB Repository 01/16/2018 [id number] [facility] [place] [facility] ing:LAB Repository 11/14/2017 [id number] [facility] [place] [facility] Repository 10/20/2017/10/21/19 [id number] Ambulatory BMSBuilding:B [place] 18 MS.[facility] Hospital Repository 10/17/2017 [id number] [facility]ulatory [place] [facility] ing:LAB Repository 10/17/2017/10/18/19 [id number] Annita Reeder Ambulatory [facility] 18 [facility] ing:SH.[facility] System Repository PAYERS PAYERS ENCOUNTER GUARANTOR PAYER SUBSCRIBER SOURCE 07/26/2018 OMID [id number] Primary JOSE ENRIQUE S [place] Insurance:MEDICARE GERBERDOB: [place], [place] PART A [facility] [id number] Hospital 117[address]Nyp: (330) Number: Repository [phone] () [id number] Date:2018-07-26 07/26/2018 Secondary JOS EENRIQUE S [place] Insurance:AARPPolicy GERBERDOB: Community Number: [id number] Hospital [id number] Repository Date:3497-74-99[address], [place] [address]VG: 07/26/2018 Tertiary NOT GIVENUNK [place] Insurance:SELF PAY [facility] Hospital Number: Effective Repository Date:2018-07-26 06/28/2018 OMID [id number] Primary JOSE ENRIQUE S [place] Insurance:MEDICARE GERBERDOB: [place] PART A [facility] [id number] Hospital 27853Keh: (330) Number: Repository [phone] (HP) [id number] Date:2018-06-21 06/28/2018 Secondary JOSE ENRIQUE S [place] Insurance:AARPPolicy GERBERDOB: Community Number: [id number] Hospital [id number] Repository Date:6889-89-29SH [address], [place] [address]MN: 06/28/2018 Tertiary NOT GIVENUNK [place] Insurance:SELF PAY [facility] Number: Effective Repository Date:2018-06-21 06/21/2018 OMID TAYLOR Primary JOSE ENRIQUE S [place] Insurance:MEDICARE [place]OB[place] BPolicy [id number] Hospital [address]Cqf: (330) Number: Repository [phone] () [id number] Date:2018-06-21 06/21/2018 Secondary JOSE ENRIQUE S [place] Insurance:AARPPolicy GERBERDOB: Community Number: [id number] Hospital [id number] Repository Date:8060-33-26MI [address], [place] [address]YM: 06/21/2018 Tertiary NOT GIVENUNK [place] Insurance:SELF PAY [facility] Number: Effective Repository Date:2018-06-21 04/18/2018 OMID [id number] Primary JOSE ENRIQUE S [place] Insurance:MEDICARE GERBERDOB: [facility] [place] PART A [facility] [id number] Hospital 97[address]Hgc: (330) Number: Repository [phone] () [id number] Date:2018-04-18 04/18/2018 Secondary JOSE ENRIQUE S [place] Insurance:AARPPolicy GERBERDOB: Community Number: [id number] Hospital [id number] Repository Date:4019-30-83RH [address]JJF, [place] [address]BR: 04/18/2018 Tertiary NOT GIVENUNK [place] Insurance:SELF PAY [facility] Hospital Number: Effective Repository Date:2018-04-18 01/16/2018 OMID TAYLOR Primary JOSE ENRIQUE S [place] Insurance:AULTCAREPol [place]DOB[place] icy Number: [id number] Hospital 75[address]Dbv: (079) [id number] Repository [phone] () Date:5306-24-38DP [address] [place] [address]EJ: 01/16/2018 Secondary NOT GIVENUNK [place] Insurance:SELF PAY [facility] Number: Effective Repository Date:2018-01-16 11/14/2017 OMID [id number] Primary JOSE ENRIQUE GERBERDOB: [place] [address] Insurance:AULTCAREPol [id number] [place] [place] Number: Hospital [address]Xhi: 330 [id number] Repository [phone] (HP) Date:9721-51-63GF [address] [place] [address]PC: 11/14/2017 Secondary NOT GIVENUNK [place] Insurance:SELF PAY [facility] Number: Effective Repository Date:2017-10-21 10/20/2017 OMID [id number] Primary JOSE ENRIQUE GERBERDOB: [place] [address] Insurance:AULTCAREPol [id number] [place] icy Number: Hospital [id number]: 330 [id number] Repository [phone] () Date:6286-80-68DU [address] [place] [address]DP: 10/20/2017 Secondary NOT GIVENUNK [place] Insurance:SELF PAY [facility] Number: Effective Repository Date:2017-10-20 10/17/2017 OMID [id number] Primary JOSE ENRIQUE GERBERDOB: [place] [address] Insurance:AULTCAREPol [id number] [place] icy Number: Hospital [address]Lew: 330 [id number] Repository [phone] (HP) Date:0245-49-75XG [address] [address]XS: 10/17/2017 Secondary NOT GIVENUNK [place] Insurance:SELF PAY [facility] Number: Effective Repository Date:2017-10-17 10/17/2017 JOSE ENRIQUE S Primary JOSE ENRIQUE S [place] GERBERDOB: Insurance:INSURANCE GERBERDOB: [facility] [id number] [facility] [id number] System COUNTRY CLUB Number: Effective COUNTRY CLUB Repository [place] Date:2017-04-28 - [place] [id number]: [id number] [phone]: Name:Matt GARVIN (XT) [address] ()Tel: [phone]: [phone]
== END ==
PROVIDERS: Family Provider Family Medicine Geriatric Medicine; PCP Family Medicine Geriatric Medicine; Referring Provider Family Medicine Geriatric Medicine; Visit Provider Family Medicine Geriatric Medicine
DX: F17.200 Nicotine dependence, unspecified, uncomplicated (principal); Z87.891 Personal history of nicotine dependence; Z12.2 Encounter for screening for malignant neoplasm of respiratory organs
CPT/HCPCS: G0297

== ENCOUNTER → 2018-07-26 10:57 | Outpatient (CLI) | payer MEDICARE, OTHER, SELFPAY ==
[2018-07-26 12:15] LABS: Thyroid Stim Hormone (TSH) 1.52 uIU/mL (0.358-3.74)
--- OUTSIDE RECORDS SUMMARY | 2018-09-30 06:58 | XMS RPT_ITS ---
:1955 Author Organization OHIP Support Name Relationship Address Phone OMID APONTE Unavailable [address] + [place] [address] RIGO, CHANDRA Unavailable [address] + [place] [address] R Unavailable Unavailable Unavailable FADI, OMID Unavailable [address] + [place] [address] RIGO, CHANDRA Unavailable [address] + [place] [address] R Unavailable Unavailable Unavailable FADI, OMID Unavailable [address] + [place] [address] RIGO, CHANDRA Unavailable [address] + [place] [address] R Unavailable Unavailable Unavailable FADI, OMID Unavailable [address] + [place] [address] RIGO, CHANDRA Unavailable [address] + [place] [address] R Unavailable Unavailable Unavailable FADI, OMID Unavailable [address] + [place] [address] RIGO, CHANDRA Unavailable [address] + [place] [address] R Unavailable Unavailable Unavailable FADI, OMID Unavailable [address] + [place] [address] RIGO, CHANDRA Unavailable [address] + [place] [address] R Unavailable Unavailable Unavailable FADI, OMID Unavailable [address] + [place] [address] RIGO, CHANDRA Unavailable [address] + [place] [address] R Unavailable Unavailable Unavailable OMID APONET Unavailable [address] + [place] [address] RIGOCHANDRA Unavailable [address] [facility] + [place] [address] R Unavailable Unavailable Unavailable Care Team Providers [...] Unknown 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 - ANNITA REEDER 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 [place], [address] LUNG Observed: 06/28/2018 Status: F Source: [place] SCREENING 6:38 AM [facility] REPOSITORY [facility] [address] [place] [address] Lung Screening MR#: [id number] Acct: [id number] Name: JOSE ENRIQUE APONTE Rep #: [id number] : 1955 F 63 From: Jeronimo Delarosa MD PCP: Yonatan Davila MD, Chi Status: REG CLI Study: Low Dose CT Lung Screening Date of Exam: 06/28/18 Exam# [id number] Ordering Dr: Yonatan Davila MD STUDY: LOW [...] Service support , CC: Yonatan Davila MD Electronics System Mechanic: Signed CBC W/DIFF, AUTOMATED Collected: 06/21/2018 Status: F Source: [place] 2:05 PM [facility] REPOSITORY TYPE CODE TESTS RESULT [...] Lymph 2.52 Performed By: #### L100.0100 #### [facility] [address], [place], [id number] VITAMIN D,25 HYDROXY Collected: 06/21/2018 Status: F Source: [place] 2:05 PM [facility] REPOSITORY TYPE CODE TESTS RESULT OUT OF RANGE REFERENCE UNITS LAB L506.1000 29.95-100.01 ng/mL Normal Vitamin D 40.9 25-OH Result Comment: Vitamin D 25(OH) Status Range Deficiency <20 ng/mL (50nmol/L) Insuffciency 20 - 30 ng/mL (50 - 75 nmol/L) Sufficiency 30 - 100 ng/mL (75 - 250 nmol/L) Toxicity >100 ng/mL (>250 nmol/L) Performed By: #### L506.1000 #### [facility] [address] [place], [address] COMPREHENSIVE METABOLIC Collected: 06/21/2018 Status: F Source: [place] [facility] 2:05 PM [facility] REPOSITORY TYPE CODE TESTS RESULT [...] 7 Performed By: #### L500.4050, L501.9520 #### [facility] [address] [place], [address] THYROID STIM HORMONE Collected: 06/21/2018 Status: F Source: [place] (TSH) 2:05 PM [facility] REPOSITORY TYPE CODE TESTS RESULT OUT OF RANGE REFERENCE UNITS LAB L501.9520 0.358-3.74 uIU/mL Normal TSH 1.73 Performed By: #### L500.4050, L501.9520 #### [facility] [place], [address] THYROID STIM HORMONE Collected: 04/18/2018 Status: F Source: [place] (TSH) 10:18 AM [facility] REPOSITORY TYPE CODE TESTS RESULT OUT OF RANGE REFERENCE UNITS LAB L501.9520 0.358-3.74 uIU/mL Normal TSH 1.45 Performed By: #### L501.9520 #### [facility] [place], [address] THYROID STIM HORMONE Collected: 01/16/2018 Status: F Source: [place] (TSH) 8:26 AM [facility] REPOSITORY TYPE CODE TESTS RESULT OUT OF RANGE REFERENCE UNITS LAB L501.9520 0.358-3.74 uIU/mL Normal TSH 1.28 Performed By: #### L501.9520 #### [facility] [address] [place], [address] SCREENING MAMM (CAD), Observed: 11/14/2017 Status: F Source: [place] BILAT 2:41 PM [facility] REPOSITORY [facility] Services [address] [place] [address] SCREENING MAMM (CAD), BILAT MR#: [id number] Acct: [id number] Name: JOSE ENRIQUE APONTE Rep #: [id number] : 1955 F 62 From: Pedro Marcum MD PCP: Yonatan Davila MD, Chi Status: REG CLI Study: SCREENING MAMM (CAD), BILAT Date of Exam: 11/14/17 Exam# [id number] Ordering Dr: Chante Galvin MD MAMMOGRAPHY - [...] delay biopsy of a clinically suspicious abnormality. [id number] Electronically Signed: Pedro Marcum MD at 9:29 EDT Tel [phone], Service support , CC: Chante Galvin MD; Yonatan Davila MD Electronics System Mechanic: Signed MEDICAID SPECIALIST OFFICE VISIT Observed: 10/20/2017 Status: F Source: [place] [facility] 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 [address] [place], [address] US THYROID Observed: 10/17/2017 Status: F Source: [facility] 8:47 AM [facility] REPOSITORY Exam Date/Time: 10/17/2017 09:14 EDT [...] SEVERITY SOURCE 10/20/2017 Drug No Known Unknown [facility] Allergy/416 Allergies/C59926 Hospital 545676(SNOM 0388(RXNORM) Repository ED CT) Drug/691177 No Known Christianity 003(SNOMED Allergies [facility] CT) System Repository ENCOUNTERS ENCOUNTERS ADMIT/DISCHARGE ACCOUNT ADMITTING ENCOUNTER LOCATION SOURCE NUMBER CLASS 07/26/2018 [id number] Ambulatory [facility] ing:LAB Repository 06/28/2018 [id number] [facility] ing:CT Repository 06/21/2018 [id number] [facility] ing:POLAB3 Repository 04/18/2018 [id number] [facility] ing:LAB Repository 01/16/2018 [id number] Ambulatory [place] [facility] ing:LAB Repository 11/14/2017 [id number] [facility] [place] [facility]:OP[facility] Repository 10/20/2017/10/21/19 [id number] Ambulatory BMSBuilding:B [place] [facility] Hospital Repository 10/17/2017 [id number] Ambulatory [place] [facility] ing:LAB Repository 10/17/2017/10/18/19 [id number] Annita Reeder Ambulatory [facility] ing:SH.[facility] System Repository PAYERS PAYERS ENCOUNTER GUARANTOR PAYER SUBSCRIBER SOURCE 07/26/2018 OMID [id number] Primary JOSE ENRIQUE S [place] [address] Insurance:MEDICARE GERBERDOB: [place] PART A [facility] [id number] Hospital [address]Mci: (330) Number: Repository [phone] () [id number] Date:2018-07-26 07/26/2018 Secondary JOSE ENRIQUE S [place] Insurance:AARPPolicy GERBERDOB: Community Number: [id number] Hospital [id number] Repository Date:3355-38-66[address], [place] [address]NK: 07/26/2018 Tertiary NOT GIVENUNK [place] Insurance:SELF PAY [facility] Number: Effective Repository Date:2018-07-26 06/28/2018 OMID [id number] Primary JOSE ENRIQUE S [place] [address] Insurance:MEDICARE GERBERDOB: [place] PART A [facility] [id number] Hospital [address]Mho: (330) Number: Repository [phone] (HP) [id number] Date:2018-06-21 06/28/2018 Secondary JOSE ENRIQUE S [place] Insurance:AARPPolicy GERBERDOB: Community Number: [id number] Hospital [id number] Repository Date:2029-69-15[address], [place] [address]NB: 06/28/2018 Tertiary NOT GIVENUNK [place] Insurance:SELF PAY [facility] Number: Effective Repository Date:2018-06-21 06/21/2018 OMID TAYLOR Primary JOSE ENRIQUE S [place] [address] Insurance:MEDICARE [place]OB[place] BPolicy [id number] Hospital [address]Bzi: (330) Number: Repository [phone] () [id number] Date:2018-06-21 06/21/2018 Secondary JOSE ENRIQUE S [place] Insurance:AARPPolicy GERBERDOB: Community Number: [id number] Hospital [id number] Repository Date:9774-87-53[address], [place] [address]XQ: 06/21/2018 Tertiary NOT GIVENUNK [place] Insurance:SELF PAY [facility] Number: Effective Repository Date:2018-06-21 04/18/2018 OMID [id number] Primary JOSE ENRIQUE S [place] [address] Insurance:MEDICARE GERBERDOB: [facility] [place] PART A [facility] [id number] Hospital [address]Qqz: (330) Number: Repository [phone] () [id number] Date:2018-04-18 04/18/2018 Secondary JOSE ENRIQUE S [place] Insurance:AARPPolicy GERBERDOB: Community Number: [id number] Hospital [id number] Repository Date:8542-78-93[address], [place] [address]DW: 04/18/2018 Tertiary NOT GIVENUNK [place] Insurance:SELF PAY [facility] Number: Effective Repository Date:2018-04-18 01/16/2018 OMID TAYLOR Primary JOSE ENRIQUE S [place] [address] Insurance:AULTCAREPol [place]DOB[place] icy Number: [id number] Hospital [address]Uio: (281) [id number] Repository [phone] () Date:4335-76-51MS [address] [place] [address]MV: 01/16/2018 Secondary NOT GIVENUNK [place] Insurance:SELF PAY [facility] Number: Effective Repository Date:2018-01-16 11/14/2017 OMID [id number] Primary JOSE ENRIQUE GERBERDOB: [place] [address] Insurance:AULTCAREPol [id number] [facility] [place] icy Number: Hospital [id number]: 330 [id number] Repository [phone] (HP) Date:6345-85-93EC [address] [place] [address]WX: 11/14/2017 Secondary NOT GIVENUNK [place] Insurance:SELF PAY [facility] Number: Effective Repository Date:2017-10-21 10/20/2017 OMID [id number] Primary JOSE ENRIQUE GERBERDOB: [place] [address] Insurance:AULTCAREPol [id number] [place] icy Number: Hospital [address]Klp: 330 [id number] Repository [phone] () Date:5065-10-00IN [address] [place] [address]RF: 10/20/2017 Secondary NOT GIVENUNK [place] Insurance:SELF PAY Community [facility] Number: Effective Repository Date:2017-10-20 10/17/2017 OMID [id number] Primary JOSE ENRIQUE GERBERDOB: [place] [address] Insurance:AULTCAREPol [id number] [place] icy Number: Hospital [id number]: 330 [id number] Repository [phone] (HP) Date:3134-12-53YY [address] [address]TW: 10/17/2017 Secondary NOT GIVENUNK [place] Insurance:SELF PAY [facility] Number: Effective Repository Date:2017-10-17 10/17/2017 JOSE ENRIQUE S Primary JOSE ENRIQUE S Christianity GERBERDOB: Insurance:INSURANCE GERBERDOB: [facility] [id number] [facility] [id number] System [address]TRY CLUB Number: Effective COUNTRY CLUB Repository [place] Date:2017-04-28 - [place] [id number]: [id number] [id number]: Name:Matt GARVIN (CP) [address] ()Tel: [phone]: [phone]
== END ==
PROVIDERS: Family Provider Family Medicine Geriatric Medicine; PCP Family Medicine Geriatric Medicine; Referring Provider Internal Medicine Endocrinology, Diabetes & Metabolism; Visit Provider Internal Medicine Endocrinology, Diabetes & Metabolism
DX: E05.00 Thyrotoxicosis with diffuse goiter without thyrotoxic crisis or storm (principal)
CPT/HCPCS: 36415; 84443

== ENCOUNTER → 2018-10-20 | Outpatient (CLI) | payer MEDICARE, OTHER, SELFPAY ==
[2017-10-20 10:31] VITALS: BMI 29.6
[2018-10-20 10:16] LABS: Thyroid Stim Hormone (TSH) 2.12 uIU/mL (0.358-3.74)
== END | disposition home or self-care (01) ==
LOC: LAB 08:49
PROVIDERS: Family Provider Family Medicine Geriatric Medicine; PCP Family Medicine Geriatric Medicine; Referring Provider Internal Medicine Endocrinology, Diabetes & Metabolism; Visit Provider Internal Medicine Endocrinology, Diabetes & Metabolism
DX: E05.00 Thyrotoxicosis with diffuse goiter without thyrotoxic crisis or storm (principal)
CPT/HCPCS: 36415; 84443

== ENCOUNTER → 2019-01-17 | Outpatient (CLI) | payer MEDICARE, OTHER, SELFPAY ==
[2018-12-20 09:19] VITALS: BMI 29.6
[2019-01-17 10:50] LABS: Thyroid Stim Hormone (TSH) 1.65 uIU/mL (0.358-3.74)
== END | disposition home or self-care (01) ==
LOC: LAB 08:50
PROVIDERS: Family Provider Family Medicine Geriatric Medicine; PCP Family Medicine Geriatric Medicine; Referring Provider Internal Medicine Endocrinology, Diabetes & Metabolism; Visit Provider Internal Medicine Endocrinology, Diabetes & Metabolism
DX: E05.00 Thyrotoxicosis with diffuse goiter without thyrotoxic crisis or storm (principal)
CPT/HCPCS: 36415; 84443

== ENCOUNTER → 2019-04-17 | Outpatient (CLI) | payer MEDICARE, OTHER, SELFPAY ==
[2018-12-20 09:19] VITALS: BMI 29.6
[2019-04-17 12:21] LABS: Thyroid Stim Hormone (TSH) 2.36 uIU/mL (0.358-3.74)
== END | disposition home or self-care (01) ==
LOC: LAB 10:43
PROVIDERS: Family Provider Family Medicine Geriatric Medicine; PCP Family Medicine Geriatric Medicine; Referring Provider Internal Medicine Endocrinology, Diabetes & Metabolism; Visit Provider Internal Medicine Endocrinology, Diabetes & Metabolism
DX: E05.00 Thyrotoxicosis with diffuse goiter without thyrotoxic crisis or storm (principal)
CPT/HCPCS: 36415; 84443

== ENCOUNTER → 2019-06-26 11:02 | Outpatient (CLI) | payer MEDICARE, OTHER, SELFPAY ==
[2018-12-20 09:19] VITALS: BMI 29.6
[2019-06-26 12:29] LABS: Absolute Lymphocyte Count 2.66 X10^3/uL (0.83-4.51); Absolute Neutrophil Count 7.7 X10^3/uL (2.0-7.7); Basophil# 0.09 X10^3/uL; Basophil% 0.8 % (0-1); Eosinophil# 0.08 X10^3/uL; Eosinophils% 0.7 % (0-5); Hemoglobin 14.7 g/dL (12.0-15.0); Lymphocyte # 2.66 X10^3/ul (4.0); Lymphocyte % 24.1 % (19-41); Mean Corp Hgb Conc 33.4 g/dL (32-36); Mean Corpuscular Hgb 31.8 pg (27.0-32.0); Mean Corpuscular Volume 95.2 fL (81-99); Mean Platelet Vol. 10.5 fl (6.2-12.0); Monocyte# 0.45 X10^3/uL; Monocyte% 4.1 % (0-10); NRBC Flagged by Analyzer 0 % (0-5); Neutrophil # 7.73 X10^3/uL (2.7-7.7); Neutrophil % 69.8 % (47-70); Platelet Count 237 K/mm3 (150-450); RBC Distribution Width CV 12.7 % (11.6-14.6); RBC Distribution Width SD 44.3 fl (35.1-43.9); Red Blood Count 4.62 M/mm3 (4.2-5.4); White Blood Count 11.1 K/mm3 (4.4-11.0)
[2019-06-26 12:44] LABS: Vitamin D,25 Hydroxy 29.5 ng/mL (29.95-100.01)
[2019-06-26 13:16] LABS: ALB/GLOB Ratio 0.9 RATIO (0.9-2.4); AST(SGOT) 14 U/L (15-37); Alanine Aminotransfer ALT/SGPT 27 U/L (13-56); Albumin, Serum 3.6 g/dL (3.2-5.0); Alkaline Phosphatase 63 U/L (45-117); Anion Gap 6 (5-15); BUN 14 mg/dL (7-18); BUN/Creat Ratio 13.7 RATIO (10-20); Chloride 103 mmol/L (98-107); Creatinine, Serum 1.02 mg/dL (0.55-1.02); EST Glomerular Filtration Rate 58 mL/min (>60); Est Glom Filt Rate - Afr Amer 70 mL/min (>60); Globulin 3.9 g/dL (2.2-4.2); Glucose 87 mg/dL (74-106); Potassium 4.5 mmol/L (3.5-5.1); Protein, Total 7.5 g/dL (6.4-8.2); Sodium Level 137 mmol/L (136-145); Thyroid Stim Hormone (TSH) 1.26 uIU/mL (0.358-3.74)
== END ==
PROVIDERS: Family Provider Family Medicine Geriatric Medicine; PCP Family Medicine Geriatric Medicine; Visit Provider Family Medicine Geriatric Medicine
DX: E55.9 Vitamin D deficiency, unspecified (principal); R53.83 Other fatigue
CPT/HCPCS: 36415; 80053; 82306; 84443; 85025

== ENCOUNTER → 2019-07-10 15:33 | Outpatient (CLI) | payer MEDICARE, OTHER, SELFPAY ==
[2018-12-20 09:19] VITALS: BMI 29.6
--- NOTE | 2019-07-10 15:35 | CT_ITS ---
STUDY: LOW DOSE CT LUNG CANCER SCREENING REASON FOR EXAM: Female, 64 years old. 40 YEAR SMOKER 1PPD, QUIT 2013 RADIATION DOSAGE (If Supplied By Facility): CTDIvol = ( 3.02 ) mGy, DLP = ( 110.61 ) mGycm TECHNIQUE: No contrast was administered. Low dose technique was utilized (average mAS-38 and kVp 120). 1.25 mm axial source images with a slice interval of 1.25-mm were reconstructed in lung windows. 2.5 mm axial source images with a slice interval of 2.5-mm were reconstructed in lung windows. 5.0 mm axial source images with a slice interval of 5.0-mm were reconstructed in soft tissue windows. Nodule measured using lung windows on PACS and/or independent workstation with automated measurement of minimum and maximum diameter. Nodule measurement reported as average diameter rounded to the nearest whole number. Growth is defined as an increase ins size of greater than 1.5 mm. COMPARISON: June 28, 2018. NODULES: Nodule #: Stable, 3.5 mm noncalcified nodule within the medial aspect of the superior segment right lower lobe, sequence 2, image 141. Stable tiny calcified anterolateral left upper lobe granuloma. No new pulmonary nodules. No pulmonary mass. Total lung nodules (excluding granulomas): 1 Emphysema: Stable generalized hyperlucency. Endobronchial lesion: None. Aorta: Stable multifocal calcified vascular plaque. No raj aneurysm. Coronary arteries: Multifocal calcified vascular plaque. Heart: Unremarkable. Pulmonary artery: Unremarkable. Mediastinal nodes: Stable, partially fatty replaced, borderline pathologic retrocaval-pretracheal lymph node. Additional stable multistation mediastinal nodes. No pathologic hilar adenopathy on this nonenhanced exam. Other chest and abdominal findings: A few small scattered foci of subsegmental atelectasis. Stable minimal left apical fibrosis/scarring. CT/Low Dose CT Lung Screening IMPRESSION: Lung-RADS category 2 - Continue annual screening with LDCT in 12 months. IMPORTANT NOTES FOR USE: ACR Lung-RADS Version 1.0 Assessment Categories Release Date: November 05, 2013 Category: Coded 0-4 bases on nodule(s) with highest degree of suspicion. Negative screen is defined as categories 1 and 2; a positive screen is defined as categories 3 and 4. Category 3 and 4A nodules that are unchanged on interval CT should be coded as category 2, and individuals returned to screening in 12 months. Category 4X: Category 3 or 4 nodules with additional imaging findings that increase the suspicion of lung cancer, such as spiculation, GGN that doubles in size in 1 year, enlarged lymph notes, etc. Category Modifiers: S (significant finding unrelated to lung cancer) and C (prior history of treated lung cancer) may be added to the 0-4 Lung-RADS Electronically Signed: Gab Solomon MD at 8:01 EST , Service support ,
== END ==
PROVIDERS: Family Provider Family Medicine Geriatric Medicine; PCP Family Medicine Geriatric Medicine; Referring Provider Family Medicine Geriatric Medicine; Visit Provider Family Medicine Geriatric Medicine
DX: F17.210 Nicotine dependence, cigarettes, uncomplicated (principal); Z12.2 Encounter for screening for malignant neoplasm of respiratory organs
CPT/HCPCS: G0297

== ENCOUNTER → 2019-07-16 09:59 | Outpatient (CLI) | payer MEDICARE, OTHER, SELFPAY ==
[2018-12-20 09:19] VITALS: BMI 29.6
[2019-07-16 11:02] LABS: Thyroid Stim Hormone (TSH) 1.62 uIU/mL (0.358-3.74)
== END ==
PROVIDERS: Family Provider Family Medicine Geriatric Medicine; PCP Family Medicine Geriatric Medicine; Referring Provider Internal Medicine Endocrinology, Diabetes & Metabolism; Visit Provider Internal Medicine Endocrinology, Diabetes & Metabolism
DX: E05.00 Thyrotoxicosis with diffuse goiter without thyrotoxic crisis or storm (principal)
CPT/HCPCS: 36415; 84443

== ENCOUNTER → 2019-11-06 | Outpatient (CLI) | payer MEDICARE, OTHER, SELFPAY ==
[2018-12-20 09:19] VITALS: BMI 29.6
[2019-11-06 10:55] LABS: Thyroid Stim Hormone (TSH) 2.36 uIU/mL (0.358-3.74)
== END | disposition home or self-care (01) ==
LOC: LAB 09:15
PROVIDERS: PCP Family Medicine Geriatric Medicine; Referring Provider Internal Medicine Endocrinology, Diabetes & Metabolism; Visit Provider Internal Medicine Endocrinology, Diabetes & Metabolism
DX: E05.00 Thyrotoxicosis with diffuse goiter without thyrotoxic crisis or storm (principal)
CPT/HCPCS: 36415; 84443

== ENCOUNTER → 2020-02-14 08:39 | Outpatient (CLI) | payer MEDICARE, OTHER, SELFPAY ==
[2018-12-20 09:19] VITALS: BMI 29.6
[2020-02-14 09:36] LABS: Thyroid Stim Hormone (TSH) 1.42 uIU/mL (0.358-3.74)
== END ==
PROVIDERS: PCP Family Medicine Geriatric Medicine; Referring Provider Internal Medicine Endocrinology, Diabetes & Metabolism; Visit Provider Internal Medicine Endocrinology, Diabetes & Metabolism
DX: E05.00 Thyrotoxicosis with diffuse goiter without thyrotoxic crisis or storm (principal)
CPT/HCPCS: 36415; 84443

== ENCOUNTER → 2020-05-12 08:52 | Outpatient (CLI) | payer MEDICARE, OTHER, SELFPAY ==
[2018-12-20 09:19] VITALS: BMI 29.6
== END ==
PROVIDERS: PCP Family Medicine Geriatric Medicine; Referring Provider Internal Medicine Endocrinology, Diabetes & Metabolism; Visit Provider Internal Medicine Endocrinology, Diabetes & Metabolism
DX: E05.00 Thyrotoxicosis with diffuse goiter without thyrotoxic crisis or storm (principal)
CPT/HCPCS: 36415; 84443

== ENCOUNTER → 2020-08-16 10:12 | Outpatient (CLI) | payer MEDICARE, OTHER, SELFPAY ==
[2018-12-20 09:19] VITALS: BMI 29.6
[2020-08-16 11:21] LABS: T4 Free Direct 1.21 ng/dL (0.76-1.46); Thyroid Stim Hormone (TSH) 2.02 uIU/mL (0.358-3.74)
== END ==
PROVIDERS: PCP Family Medicine Geriatric Medicine; Visit Provider Internal Medicine Endocrinology, Diabetes & Metabolism
DX: E05.00 Thyrotoxicosis with diffuse goiter without thyrotoxic crisis or storm (principal)
CPT/HCPCS: 36415; 84439; 84443

== ENCOUNTER 2020-09-16 13:04 | Outpatient (RCR) | payer MEDICARE, OTHER, SELFPAY ==
[2018-12-20 09:19] VITALS: BMI 29.6
[2020-09-16] MEDS: COVID-19 VACC, MRNA(PFIZER)/PF 30 MCG/0.3 ML SYRINGE IM (15:39)
[2020-10-07] MEDS: COVID-19 VACC, MRNA(PFIZER)/PF 30 MCG/0.3 ML SYRINGE IM (15:41)
== END 2020-12-16 23:59 ==
LOC: IMMUN 13:04
PROVIDERS: PCP Family Medicine Geriatric Medicine; Referring Provider Family Medicine; Visit Provider Family Medicine
DX: Z23 Encounter for immunization (principal)
CPT/HCPCS: 0001A; 0002A; 91300

== ENCOUNTER → 2020-11-10 11:24 | Outpatient (CLI) | payer MEDICARE, OTHER, SELFPAY ==
[2018-12-20 09:19] VITALS: BMI 29.6
[2020-11-10 13:28] LABS: T4 Free Direct 1.28 ng/dL (0.76-1.46); Thyroid Stim Hormone (TSH) 1.55 uIU/mL (0.358-3.74)
== END ==
PROVIDERS: PCP Family Medicine Geriatric Medicine; Referring Provider Internal Medicine Endocrinology, Diabetes & Metabolism; Visit Provider Internal Medicine Endocrinology, Diabetes & Metabolism
DX: E05.20 Thyrotoxicosis with toxic multinodular goiter without thyrotoxic crisis or storm (principal)
CPT/HCPCS: 36415; 84439; 84443

== ENCOUNTER → 2021-02-16 09:09 | Outpatient (CLI) | payer MEDICARE, OTHER, SELFPAY ==
[2018-12-20 09:19] VITALS: BMI 29.6
[2021-02-16 10:14] LABS: T4 Free Direct 1.12 ng/dL (0.76-1.46)
== END ==
PROVIDERS: PCP Family Medicine Geriatric Medicine; Referring Provider Internal Medicine Endocrinology, Diabetes & Metabolism; Visit Provider Internal Medicine Endocrinology, Diabetes & Metabolism
DX: E05.00 Thyrotoxicosis with diffuse goiter without thyrotoxic crisis or storm (principal)
CPT/HCPCS: 36415; 84439; 84443

== ENCOUNTER → 2021-03-30 12:59 | Outpatient (CLI) | payer MEDICARE, OTHER, SELFPAY ==
[2021-03-30 17:38] LABS: Absolute Lymphocyte Count 2.65 X10^3/uL (0.83-4.51); Absolute Neutrophil Count 4.5 X10^3/uL (2.0-7.7); Basophil# 0.04 X10^3/uL; Basophil% 0.5 % (0-1); Eosinophil# 0.09 X10^3/uL; Eosinophils% 1.2 % (0-5); Hematocrit 42.1 % (37-47); Hemoglobin 14.1 g/dL (12.0-15.0); Lymphocyte # 2.65 X10^3/ul (0.83-4.51); Lymphocyte % 34.4 % (19-41); Mean Corp Hgb Conc 33.5 g/dL (32-36); Mean Corpuscular Volume 95.5 fL (81-99); Mean Platelet Vol. 10.9 fl (6.2-12.0); Monocyte% 5.2 % (0-10); NRBC Flagged by Analyzer 0 % (0-5); Neutrophil % 58.4 % (47-70); Platelet Count 251 K/mm3 (150-450); RBC Distribution Width CV 12.2 % (11.6-14.6); Red Blood Count 4.41 M/mm3 (4.2-5.4); White Blood Count 7.7 K/mm3 (4.4-11.0)
[2021-03-30 18:00] LABS: Vitamin D,25 Hydroxy 60.2 ng/mL
[2021-03-30 18:06] LABS: ALB/GLOB Ratio 0.9 RATIO (0.9-2.4); AST(SGOT) 17 U/L (15-37); Alanine Aminotransfer ALT/SGPT 23 U/L (13-56); Albumin, Serum 3.6 g/dL (3.2-5.0); Alkaline Phosphatase 71 U/L (45-117); Anion Gap 9 (5-15); BUN 10 mg/dL (7-18); BUN/Creat Ratio 10.8 RATIO (10-20); Calcium,Total 9.2 mg/dL (8.5-10.1); Chloride 106 mmol/L (98-107); Creatinine, Serum 0.93 mg/dL (0.55-1.02); EST Glomerular Filtration Rate 64 mL/min (>60); Est Glom Filt Rate - Afr Amer 78 mL/min (>60); Globulin 4.1 g/dL (2.2-4.2); Glucose 90 mg/dL (74-106); Potassium 4.1 mmol/L (3.5-5.1); Protein, Total 7.7 g/dL (6.4-8.2); Sodium Level 140 mmol/L (136-145); Thyroid Stim Hormone (TSH) 1.46 uIU/mL (0.358-3.74)
== END ==
PROVIDERS: PCP Family Medicine Geriatric Medicine; Visit Provider Family Medicine Geriatric Medicine
DX: E55.9 Vitamin D deficiency, unspecified (principal); R53.83 Other fatigue
CPT/HCPCS: 36415; 80053; 82306; 84443; 85025

== ENCOUNTER → 2021-03-31 07:41 | Outpatient (CLI) | payer MEDICARE, OTHER, SELFPAY ==
--- NOTE | 2021-03-31 07:44 | BI_ITS ---
MAMMOGRAPHY - BILATERAL SCREENING REASON FOR EXAM: Female, 66 years old. Routine annual screening examination. PERTINENT HISTORY: Non-contributory. TECHNIQUE: Digital bilateral breast ibeth (3D mammographic acquisition) in the CC and MLO projections. 2-D mediolateral oblique (MLO) and craniocaudad (CC) views of both breasts were obtained. CAD: Full Field Digital Mammography with Computer Added Detection was performed. COMPARISON: Comparison is made with prior study of 11/14/2017. FINDINGS: Breast Composition: The breasts are heterogeneously dense, which may obscure small masses. There are no dominant masses or suspicious calcifications. Stable benign-appearing bilateral axillary lymph nodes. No other significant abnormalities are identified. There has been no significant change since the prior study. BI/SCRN MAMM (CAD)W/IBETH BILAT IMPRESSION: Stable bilateral screening mammogram. Yearly follow-up mammogram recommended. (A) ASSESSMENT CATEGORY: BIRADS Category 2: Benign. A letter regarding these results will be sent to the patient by the facility within 30 days. Approximately 10% of breast cancers are not detected by mammography. A normal mammogram should not delay biopsy of a clinically suspicious abnormality. [id number] Electronically Signed: Pedro Marcum MD at 8:55 EDT , Service support ,
--- NOTE | 2021-03-31 08:15 | BD_ITS ---
STUDY: DUAL ENERGY X-RAY ABSORPTIOMETRY / DXA REASON FOR EXAM: Female, 66 years old. Estrogen deficiency -- ESTROGEN DEFICIENCY TECHNIQUE: Bone Mineral Density (BMD) measurements of lumbar spine and bilateral hips were obtained. COMPARISON: None. FINDINGS: Lumbar Spine (L1-L4): g/cm2 (0.798) / T-score (-2.0) / Z-score (-0.1) Findings are suggestive of osteopenia with a moderate fracture risk. Left Femur Total: g/cm2 (0.778) / T-score (-1.3) / Z-score (0.1) Left Femoral Neck: g/cm2 (0.551) / T-score (-2.7) / Z-score (-1.0) Right Femur Total: g/cm2 (0.775) / T-score (-1.4) / Z-score (0.0) Right Femoral Neck: g/cm2 (0.582) / T-score (-2.4) / Z-score (-0.7) BD/Dexa Bone Density Study IMPRESSION: The patient is considered osteoporotic as outlined below according to World Jeramy Organization (WHO) criteria with a high fracture risk. Reference Information: The T-score is the number of standard deviations above or below the standard which is normal for young adults at their peak bone mineral density. The World Health Organization (WHO) interprets the T-scores as follows: Above -1 Normal bone density Between -1 and -2.5 Osteopenia Equal to / or below -2.5 Osteoporosis As a practical clinical guideline, osteopenia may be graded as follows: Mild -1 through -1.5 Moderate -1.6 through -2.0 Severe -2.1 through -2.4 The Z-score is the number of standard deviations above or below age-matched controls. A Z-score of less than -1.5 would be considered abnormal. References: 1. NIH Osteoporosis and Related Bone Diseases www osteo.org 2. International Society for Clinical Densitometry www iscd.org 3. National Osteoporosis Foundation www nof.org Electronically Signed: Pedro Marcum MD at 15:18 EDT , Service support ,
== END ==
PROVIDERS: PCP Family Medicine Geriatric Medicine; Referring Provider Obstetrics & Gynecology; Visit Provider Obstetrics & Gynecology
DX: E28.39 Other primary ovarian failure (principal); Z12.31 Encounter for screening mammogram for malignant neoplasm of breast
CPT/HCPCS: 77063; 77067; 77080

== ENCOUNTER → 2021-05-13 11:38 | Outpatient (CLI) | payer MEDICARE, OTHER, SELFPAY ==
[2021-05-13 14:24] LABS: T4 Free Direct 1.19 ng/dL (0.76-1.46); Thyroid Stim Hormone (TSH) 1.95 uIU/mL (0.358-3.74)
== END ==
PROVIDERS: PCP Family Medicine Geriatric Medicine; Referring Provider Internal Medicine Endocrinology, Diabetes & Metabolism; Visit Provider Internal Medicine Endocrinology, Diabetes & Metabolism
DX: E05.00 Thyrotoxicosis with diffuse goiter without thyrotoxic crisis or storm (principal)
CPT/HCPCS: 36415; 84439; 84443

== ENCOUNTER 2021-08-18 08:56 | Outpatient (CLI) | payer MEDICARE, OTHER, SELFPAY ==
[2021-08-18 10:19] LABS: T4 Free Direct 1.04 ng/dL (0.76-1.46); Thyroid Stim Hormone (TSH) 1.58 uIU/mL (0.358-3.74)
== END 2021-08-18 23:59 | disposition home or self-care (01) ==
LOC: LAB 09:02
PROVIDERS: PCP Family Medicine Geriatric Medicine; Visit Provider Internal Medicine Endocrinology, Diabetes & Metabolism
DX: E05.00 Thyrotoxicosis with diffuse goiter without thyrotoxic crisis or storm (principal)
CPT/HCPCS: 36415; 84439; 84443

== ENCOUNTER → 2021-11-13 | Outpatient (CLI) | payer MEDICARE, OTHER, SELFPAY ==
[2021-11-13 11:24] LABS: T4 Free Direct 1.11 ng/dL (0.76-1.46); Thyroid Stim Hormone (TSH) 1.51 uIU/mL (0.358-3.74)
== END | disposition home or self-care (01) ==
LOC: LAB 09:22
PROVIDERS: PCP Family Medicine Geriatric Medicine; Visit Provider Internal Medicine Endocrinology, Diabetes & Metabolism
DX: E05.00 Thyrotoxicosis with diffuse goiter without thyrotoxic crisis or storm (principal)
CPT/HCPCS: 36415; 84439; 84443

== ENCOUNTER → 2022-03-11 | Outpatient (CLI) | payer MEDICARE, OTHER, SELFPAY ==
[2022-03-11 10:43] LABS: T4 Free Direct 1.14 ng/dL (0.76-1.46); Thyroid Stim Hormone (TSH) 1.31 uIU/mL (0.358-3.74)
== END | disposition home or self-care (01) ==
LOC: LAB 09:19
PROVIDERS: PCP Family Medicine Geriatric Medicine; Visit Provider Internal Medicine Endocrinology, Diabetes & Metabolism
DX: E05.00 Thyrotoxicosis with diffuse goiter without thyrotoxic crisis or storm (principal)
CPT/HCPCS: 36415; 84439; 84443

== ENCOUNTER → 2022-03-31 | Outpatient (CLI) | payer MEDICARE, OTHER, SELFPAY ==
[2022-03-31 16:53] LABS: Absolute Lymphocyte Count 3.28 X10^3/uL (0.83-4.51); Absolute Neutrophil Count 5.2 X10^3/uL (2.0-7.7); Basophil# 0.06 X10^3/uL; Basophil% 0.7 % (0-1); Eosinophil# 0.17 X10^3/uL; Eosinophils% 1.9 % (0-5); Hematocrit 42.6 % (37-47); Hemoglobin 14.6 g/dL (12.0-15.0); Lymphocyte # 3.28 X10^3/ul (0.83-4.51); Lymphocyte % 35.8 % (19-41); Mean Corp Hgb Conc 34.3 g/dL (32-36); Mean Corpuscular Hgb 32.5 pg (27.0-32.0); Mean Corpuscular Volume 94.9 fL (81-99); Mean Platelet Vol. 10.6 fl (6.2-12.0); Monocyte% 4.4 % (0-10); NRBC Flagged by Analyzer 0 % (0-5); Neutrophil # 5.23 X10^3/uL (2.7-7.7); Platelet Count 255 K/mm3 (150-450); RBC Distribution Width SD 45.2 fl (35.1-43.9); Red Blood Count 4.49 M/mm3 (4.2-5.4); White Blood Count 9.2 K/mm3 (4.4-11.0)
[2022-03-31 17:11] LABS: Vitamin D,25 Hydroxy 49.9 ng/mL
[2022-03-31 17:19] LABS: ALB/GLOB Ratio 0.9 RATIO (0.9-2.4); AST(SGOT) 16 U/L (15-37); Alanine Aminotransfer ALT/SGPT 26 U/L (13-56); Albumin, Serum 3.5 g/dL (3.2-5.0); Alkaline Phosphatase 60 U/L (45-117); Anion Gap 9 (5-15); BUN 13 mg/dL (7-18); BUN/Creat Ratio 13.5 RATIO (10-20); Calcium,Total 8.8 mg/dL (8.5-10.1); Chloride 106 mmol/L (98-107); Creatinine, Serum 0.96 mg/dL (0.55-1.02); EST Glomerular Filtration Rate 61 mL/min (>60); Est Glom Filt Rate - Afr Amer 74 mL/min (>60); Globulin 3.9 g/dL (2.2-4.2); Glucose 119 mg/dL (74-106); Potassium 3.6 mmol/L (3.5-5.1); Protein, Total 7.4 g/dL (6.4-8.2); Sodium Level 141 mmol/L (136-145); Thyroid Stim Hormone (TSH) 1.51 uIU/mL (0.358-3.74)
== END | disposition home or self-care (01) ==
LOC: POLAB3 12:38
PROVIDERS: PCP Family Medicine Geriatric Medicine; Visit Provider Family Medicine Geriatric Medicine
DX: R53.83 Other fatigue (principal); E55.9 Vitamin D deficiency, unspecified
CPT/HCPCS: 36415; 80053; 82306; 84443; 85025

== ENCOUNTER → 2022-04-08 | Outpatient (CLI) | payer MEDICARE, OTHER, SELFPAY ==
--- NOTE | 2022-04-08 12:42 | CT_ITS ---
STUDY: LOW DOSE CT LUNG CANCER SCREENING REASON FOR EXAM: Female, 67 years old. SMOKER. Patient smoked 1 pack per day for 42 years. RADIATION DOSAGE (If Supplied By Facility): CTDIvol = ( 3.02 ) mGy, DLP = ( 109.85 ) mGycm TECHNIQUE: No contrast was administered. Low dose technique was utilized (average mAS-38 and kVp 120). 1.25 mm axial source images with a slice interval of 1.25-mm were reconstructed in lung windows. 2.5 mm axial source images with a slice interval of 2.5-mm were reconstructed in lung windows. 5.0 mm axial source images with a slice interval of 5.0-mm were reconstructed in soft tissue windows. COMPARISON: Comparison is made with prior study dated 07/10/2019. NODULES: Stable 3.5 mm noncalcified nodule in the posterior medial segment of the right lower lobe as seen on axial image #135. Stable tiny calcified granuloma in the left upper lobe. Emphysema: Hyperinflation. Emphysematous changes. Mild linear scarring in the lung bases as well as the lingular segment of the left upper lobe and superior segment of the left lower lobe. Endobronchial lesion: Unremarkable Aorta: Calcified plaques involving the aortic arch. CORONARY ARTERIES: Coronary artery calcification is seen. Heart: Unremarkable Pulmonary artery: Unremarkable Mediastinal nodes: Small mediastinal lymph nodes. Other chest and abdominal findings: CT/Low Dose CT Lung Screening IMPRESSION: Lung-RADS category 2 - Continue annual screening with LDCT in 12 months. IMPORTANT NOTES FOR USE: ACR Lung-RADS Version 1.1 Assessment Categories Release Date: 2018 Category: Coded 0-4 bases on nodule(s) with highest degree of suspicion. Negative screen is defined as categories 1 and 2; a positive screen is defined as categories 3 and 4. Category 3 and 4A nodules that are unchanged on interval CT should be coded as category 2, and individuals returned to screening in 12 months. Category 4X: Category 3 or 4 nodules with additional imaging findings that increase the suspicion of lung cancer, such as spiculation, GGN that doubles in size in 1 year, enlarged lymph notes, etc. Category Modifiers: S (significant finding unrelated to lung cancer) Electronically Signed: Pedro Marcum MD at 13:26 EDT ,
== END | disposition home or self-care (01) ==
LOC: CT 12:41
PROVIDERS: PCP Family Medicine Geriatric Medicine; Referring Provider Family Medicine Geriatric Medicine; Visit Provider Family Medicine Geriatric Medicine
DX: Z87.891 Personal history of nicotine dependence (principal)
CPT/HCPCS: 71271

== ENCOUNTER → 2022-05-21 | Outpatient (CLI) | payer MEDICARE, OTHER, SELFPAY ==
[2022-05-21 09:50] LABS: T4 Free Direct 1.13 ng/dL (0.76-1.46); Thyroid Stim Hormone (TSH) 1.58 uIU/mL (0.358-3.74)
== END | disposition home or self-care (01) ==
LOC: LAB 09:03
PROVIDERS: PCP Family Medicine Geriatric Medicine; Referring Provider Internal Medicine Endocrinology, Diabetes & Metabolism; Visit Provider Internal Medicine Endocrinology, Diabetes & Metabolism
DX: E05.00 Thyrotoxicosis with diffuse goiter without thyrotoxic crisis or storm (principal)
CPT/HCPCS: 36415; 84439; 84443

== ENCOUNTER → 2022-07-07 | Outpatient (CLI) | payer MEDICARE, OTHER, SELFPAY | END | disposition home or self-care (01) | LOC: PSN 09:15 | PROVIDERS: PCP Family Medicine Geriatric Medicine; Visit Provider Family Medicine Geriatric Medicine | DX: R68.83 Chills (without fever) (principal); Z20.822 Contact with and (suspected) exposure to COVID-19 | CPT/HCPCS: 87635; 87804; 87807; C9803; U0003; U0005 ==

== ENCOUNTER → 2022-09-03 | Outpatient (CLI) | payer MEDICARE, OTHER, SELFPAY ==
[2022-09-03 11:01] LABS: Thyroid Stim Hormone (TSH) 1.56 uIU/mL (0.358-3.74)
== END | disposition home or self-care (01) ==
LOC: LAB 09:04
PROVIDERS: PCP Family Medicine Geriatric Medicine; Referring Provider Internal Medicine Endocrinology, Diabetes & Metabolism; Visit Provider Internal Medicine Endocrinology, Diabetes & Metabolism
DX: E05.00 Thyrotoxicosis with diffuse goiter without thyrotoxic crisis or storm (principal)
CPT/HCPCS: 36415; 84439; 84443

== ENCOUNTER → 2022-12-02 | Outpatient (CLI) | payer MEDICARE, OTHER, SELFPAY ==
[2022-12-02 11:59] LABS: T4 Free Direct 1.15 ng/dL (0.76-1.46); Thyroid Stim Hormone (TSH) 1.55 uIU/mL (0.358-3.74)
== END | disposition home or self-care (01) ==
PROVIDERS: PCP Family Medicine Geriatric Medicine; Referring Provider Internal Medicine Endocrinology, Diabetes & Metabolism; Visit Provider Internal Medicine Endocrinology, Diabetes & Metabolism
DX: E05.00 Thyrotoxicosis with diffuse goiter without thyrotoxic crisis or storm (principal)
CPT/HCPCS: 36415; 84439; 84443

== ENCOUNTER → 2023-03-10 | Outpatient (CLI) | payer MEDICARE, OTHER, SELFPAY ==
[2023-03-10 14:24] LABS: T4 Free Direct 1.15 ng/dL (0.76-1.46); Thyroid Stim Hormone (TSH) 1.41 uIU/mL (0.358-3.74)
== END | disposition home or self-care (01) ==
PROVIDERS: PCP Family Medicine Geriatric Medicine; Referring Provider Internal Medicine Endocrinology, Diabetes & Metabolism; Visit Provider Internal Medicine Endocrinology, Diabetes & Metabolism
DX: E05.00 Thyrotoxicosis with diffuse goiter without thyrotoxic crisis or storm (principal)
CPT/HCPCS: 36415; 84439; 84443

== ENCOUNTER → 2023-03-21 | Outpatient (CLI) | payer MEDICARE, OTHER, SELFPAY ==
--- NOTE | 2023-03-21 08:29 | BI_ITS ---
MAMMOGRAPHY - BILATERAL SCREENING REASON FOR EXAM: Female, 68 years old. Routine annual screening examination. PERTINENT HISTORY: Non-contributory. TECHNIQUE: Digital bilateral breast ibeth (3D mammographic acquisition) in the CC and MLO projections. 2-D mediolateral oblique (MLO) and craniocaudad (CC) views of both breasts were obtained. CAD: Full Field Digital Mammography with Computer Added Detection was performed. COMPARISON: Comparison is made with prior study dated March 31, 2021 and November 14, 2017. FINDINGS: Breast Composition: The breasts are heterogeneously dense, which may obscure small masses. There are no dominant masses or suspicious calcifications. Stable small benign-appearing bilateral axillary lymph nodes. No other significant abnormalities are identified. There has been no significant change since the prior study. BI/SCRN MAMM (CAD)W/IBETH BILAT IMPRESSION: Stable bilateral screening mammogram. Yearly follow-up mammogram recommended. (A) ASSESSMENT CATEGORY: BIRADS Category 2: Benign. A letter regarding these results will be sent to the patient by the facility within 30 days. Approximately 10% of breast cancers are not detected by mammography. A normal mammogram should not delay biopsy of a clinically suspicious abnormality. [id number] Electronically Signed: Pedro Marcum MD at 10:34 EDT ,
== END | disposition home or self-care (01) ==
LOC: OPBI 08:29
PROVIDERS: Referring Provider Obstetrics & Gynecology; Visit Provider Obstetrics & Gynecology
DX: Z12.31 Encounter for screening mammogram for malignant neoplasm of breast (principal)
CPT/HCPCS: 77063; 77067

== ENCOUNTER → 2023-03-31 | Outpatient (CLI) | payer MEDICARE, OTHER, SELFPAY ==
--- NOTE | 2023-03-31 15:09 | BD_ITS ---
STUDY: DUAL ENERGY X-RAY ABSORPTIOMETRY / DXA REASON FOR EXAM: Female, 68 years old. Post menopausal TECHNIQUE: Bone Mineral Density (BMD) measurements of lumbar spine and bilateral hips were obtained. COMPARISON: Comparison is made with prior study March 31, 2021. FINDINGS: Lumbar Spine (L1-L4): g/cm2 (0.754) / T-score (-2.4) / Z-score (-0.3) Findings are suggestive of osteopenia with a high fracture risk. Left Femur Total: g/cm2 (0.782) / T-score (-1.3) / Z-score (0.2) Left Femoral Neck: g/cm2 (0.542) / T-score (-2.8) / Z-score (-1.0) Right Femur Total: g/cm2 (0.778) / T-score (-1.3) / Z-score (0.2) Right Femoral Neck: g/cm2 (0.599) / T-score (-2.3) / Z-score (-0.5) The T-Scores on the most recent prior examination were: Lumbar Spine (L1-L4): There has been worsening of bone density since the previous examination. Left Femur Total: which represents an improvement of 0.6%. Right Femur Total: which represents an improvement of 0.4%. BD/Dexa Bone Density Study IMPRESSION: The patient is considered osteoporotic as outlined below according to World [employer] Organization (WHO) criteria with a high fracture risk. There has been improvement of bone density since the previous examination. Reference Information: The T-score is the number of standard deviations above or below the standard which is normal for young adults at their peak bone mineral density. The World Health Organization (WHO) interprets the T-scores as follows: Above -1 Normal bone density Between -1 and -2.5 Osteopenia Equal to / or below -2.5 Osteoporosis As a practical clinical guideline, osteopenia may be graded as follows: Mild -1 through -1.5 Moderate -1.6 through -2.0 Severe -2.1 through -2.4 The Z-score is the number of standard deviations above or below age-matched controls. A Z-score of less than -1.5 would be considered abnormal. References: 1. NIH Osteoporosis and Related Bone Diseases www osteo.org 2. International Society for Clinical Densitometry www iscd.org 3. National Osteoporosis Foundation www nof.org Electronically Signed: Pedro Marcum MD at 14:15 EDT ,
== END | disposition home or self-care (01) ==
LOC: OPBD 15:03
PROVIDERS: PCP Family Medicine Geriatric Medicine; Referring Provider Obstetrics & Gynecology; Visit Provider Obstetrics & Gynecology
DX: Z78.0 Asymptomatic menopausal state (principal); M81.0 Age-related osteoporosis without current pathological fracture
CPT/HCPCS: 77080

== ENCOUNTER → 2023-04-04 | Outpatient (CLI) | payer MEDICARE, OTHER, SELFPAY ==
[2023-04-04 14:39] LABS: Absolute Neutrophil Count 5.9 X10^3/uL (2.0-7.7); Basophil# 0.06 X10^3/uL; Basophil% 0.6 % (0-1); Eosinophil# 0.11 X10^3/uL; Eosinophils% 1.1 % (0-5); Hematocrit 44.6 % (37-47); Hemoglobin 14.8 g/dL (12.0-15.0); Lymphocyte % 32.9 % (19-41); Mean Corp Hgb Conc 33.2 g/dL (32-36); Mean Corpuscular Hgb 31.6 pg (27.0-32.0); Mean Corpuscular Volume 95.3 fL (81-99); Mean Platelet Vol. 10.3 fl (6.2-12.0); Monocyte# 0.41 X10^3/uL; Monocyte% 4.2 % (0-10); NRBC Flagged by Analyzer 0 % (0-5); Neutrophil # 5.94 X10^3/uL (2.7-7.7); Platelet Count 258 K/mm3 (150-450); RBC Distribution Width CV 12.6 % (11.6-14.6); RBC Distribution Width SD 44.1 fl (35.1-43.9); Red Blood Count 4.68 M/mm3 (4.2-5.4); White Blood Count 9.7 K/mm3 (4.4-11.0)
[2023-04-04 15:00] LABS: ALB/GLOB Ratio 0.9 RATIO (0.9-2.4); AST(SGOT) 18 U/L (15-37); Alanine Aminotransfer ALT/SGPT 26 U/L (13-56); Albumin, Serum 3.6 g/dL (3.2-5.0); Alkaline Phosphatase 62 U/L (45-117); Anion Gap 6 (5-15); BUN 12 mg/dL (7-18); BUN/Creat Ratio 12.8 RATIO (10-20); Calcium,Total 9.3 mg/dL (8.5-10.1); Chloride 108 mmol/L (98-107); Creatinine, Serum 0.94 mg/dL (0.55-1.02); EST Glomerular Filtration Rate 63 mL/min (>60); Est Glom Filt Rate - Afr Amer 76 mL/min (>60); Globulin 3.9 g/dL (2.2-4.2); Glucose 94 mg/dL (74-106); Potassium 3.9 mmol/L (3.5-5.1); Protein, Total 7.5 g/dL (6.4-8.2); Sodium Level 139 mmol/L (136-145); Thyroid Stim Hormone (TSH) 1.19 uIU/mL (0.358-3.74)
[2023-04-04 18:43] LABS: Vitamin D,25 Hydroxy 70.6 ng/mL
== END | disposition home or self-care (01) ==
LOC: POLAB3 13:05
PROVIDERS: PCP Family Medicine Geriatric Medicine; Visit Provider Family Medicine Geriatric Medicine
DX: R53.83 Other fatigue (principal); E55.9 Vitamin D deficiency, unspecified
CPT/HCPCS: 36415; 80053; 82306; 84443; 85025

== ENCOUNTER → 2023-05-28 | Outpatient (CLI) | payer MEDICARE, OTHER, SELFPAY ==
[2023-05-28 10:28] LABS: T4 Free Direct 1.09 ng/dL (0.76-1.46); Thyroid Stim Hormone (TSH) 1.55 uIU/mL (0.358-3.74)
== END | disposition home or self-care (01) ==
LOC: LAB 09:41
PROVIDERS: PCP Family Medicine Geriatric Medicine; Visit Provider Internal Medicine Endocrinology, Diabetes & Metabolism
DX: E05.00 Thyrotoxicosis with diffuse goiter without thyrotoxic crisis or storm (principal)
CPT/HCPCS: 36415; 84439; 84443

== ENCOUNTER → 2023-09-08 | Outpatient (CLI) | payer MEDICARE, OTHER, SELFPAY ==
--- OUTSIDE RECORDS SUMMARY | 2023-09-08 10:19 | XMS RPT_ITS | CCD ---
Author Name Unknown Address [address] [place] [address] Organization [facility] Care Team Providers Care Radiographic Technologist Name Role Phone Bennett Fontenot Unavailable Unavailable AndShannan santiago Unavailable Unavailab Kirit Yoon Unavailable Unavailable No Doctor Assigned, Nodr Unavailable Unavail able Mary Kay Agusitn Unavailable Unavailable Mary Kay Agustin Unavailable Unavailable No Doctor Assigned, Nodr Unavailable Unavail able Medications Completed/Discontinued Medications Medication Drug Class(es) Dates Sig (Normalized) Sig (Original) cholecalciferol 1000 unt oral tablet (2 sources) Vitamin D Start: 03-11-2017 take 1 tablet by mouth once daily VITAMIN D3 1000 UNIT TABS One tablet by mouth daily CHOLECALCIFEROL [id number] Bennett Fontenot methIMAzole 5 mg oral tablet (2 sources) Thyroid Hormone Synthesis Inhibitor Start: 03-11-2017 METHIMAZOLE 5 MG TABS 1/2 tab 5 days a week METHIMAZOLE [id number] Bennett Fontenot Problems Problem Classification Problem Date Documented Da te Episodic/Chronic Unclassified (2 sources) No current problems or disability 03-11-2017 Results Test Name Value Interpretation Reference Range Facil ity Encounters Encounter Date Encounter Type Care Provider Facility Start: 10-17-2017 End: 10-18-2017 Ambulatory Mary Kay Agustin [facility] Start: 04-27-2017 End: 04-27-2017 Ambulatory Kirit Washington Facility:Kirit young MD Plan of Treatment Date Care Activity Detail Author [employer] Work Phone: Payers Date Payer Category Payer Unknown Summary Purpose Family History No Family History Records FoundNo Family History Records Found Advance Directives No Advanced Directives Records FoundNo Advanced Directives Records Found Additional Source Comments INFORMATION SOURCE (unrecogn ized section and content) DATE CREATED AUTHOR AUTHOR'S JOHN ATION 11/18/2020 Located within [facility] FOR RECORDS PERTAINING TO PATIENTS WHO ARE OR HAVE BEEN ENROLLED IN A CHEMICAL DEPENDENCY/SUBSTANCEABUSE PROGRAM, SOME INFORMATION MAY BE OMITTED. This clinical summary was aggregated from multiple sources. Caution should be exercised in using it in the provision of clinical care. This summary normalizes information from multiple sources, and as a consequence, information in this document may materially change the coding, format and clinical context of patient data. In addition, data may be omitted in some cases. CLINICAL DECISIONS SHOULD BE BASED ON THE PRIMARY CLINICAL RECORDS. [facility] [employer] provides no warranty or guarantee of the accuracy or completeness of information in this document.
[2023-09-08 11:11] LABS: T4 Free Direct 1.15 ng/dL (0.76-1.46); Thyroid Stim Hormone (TSH) 1.31 uIU/mL (0.358-3.74)
== END | disposition home or self-care (01) ==
LOC: LAB 09:10
PROVIDERS: PCP Family Medicine Geriatric Medicine; Referring Provider Internal Medicine Endocrinology, Diabetes & Metabolism; Visit Provider Internal Medicine Endocrinology, Diabetes & Metabolism
DX: E05.00 Thyrotoxicosis with diffuse goiter without thyrotoxic crisis or storm (principal)
CPT/HCPCS: 36415; 84439; 84443

== ENCOUNTER → 2023-12-01 | Outpatient (CLI) | payer MEDICARE, OTHER, SELFPAY ==
[2023-12-01 11:05] LABS: T4 Free Direct 1.12 ng/dL (0.76-1.46); Thyroid Stim Hormone (TSH) 1.08 uIU/mL (0.358-3.74)
== END | disposition home or self-care (01) ==
LOC: LAB 09:41
PROVIDERS: PCP Family Medicine Geriatric Medicine; Visit Provider Internal Medicine Endocrinology, Diabetes & Metabolism
DX: E05.00 Thyrotoxicosis with diffuse goiter without thyrotoxic crisis or storm (principal)
CPT/HCPCS: 36415; 84439; 84443

== ENCOUNTER → 2024-02-16 | Outpatient (CLI) | payer MEDICARE, OTHER, SELFPAY ==
[2024-02-16 10:20] LABS: Thyroid Stim Hormone (TSH) 0.92 uIU/mL (0.358-3.74)
== END | disposition home or self-care (01) ==
LOC: LAB 09:21
PROVIDERS: PCP Family Medicine Geriatric Medicine; Referring Provider Internal Medicine Endocrinology, Diabetes & Metabolism; Visit Provider Internal Medicine Endocrinology, Diabetes & Metabolism
DX: E05.00 Thyrotoxicosis with diffuse goiter without thyrotoxic crisis or storm (principal)
CPT/HCPCS: 36415; 84443

== ENCOUNTER → 2024-04-09 | Outpatient (CLI) | payer MEDICARE, OTHER, SELFPAY ==
[2024-04-09 13:08] LABS: Absolute Lymphocyte Count 2.91 X10^3/uL (0.83-4.51); Absolute Neutrophil Count 5.8 X10^3/uL (2.0-7.7); Basophil# 0.08 X10^3/uL; Basophil% 0.8 % (0-1); Eosinophil# 0.12 X10^3/uL; Eosinophils% 1.3 % (0-5); Hematocrit 44.8 % (37-47); Hemoglobin 14.8 g/dL (12.0-15.0); Lymphocyte # 2.91 X10^3/ul (0.83-4.51); Lymphocyte % 30.9 % (19-41); Mean Corpuscular Hgb 31.2 pg (27.0-32.0); Mean Corpuscular Volume 94.3 fL (81-99); Mean Platelet Vol. 9.7 fl (6.2-12.0); Monocyte# 0.53 X10^3/uL; Monocyte% 5.6 % (0-10); NRBC Flagged by Analyzer 0 % (0-5); Neutrophil # 5.75 X10^3/uL (2.7-7.7); Neutrophil % 61.1 % (47-70); Platelet Count 246 K/mm3 (150-450); RBC Distribution Width CV 12.2 % (11.6-14.6); RBC Distribution Width SD 42.7 fl (35.1-43.9); Red Blood Count 4.75 M/mm3 (4.2-5.4); White Blood Count 9.4 K/mm3 (4.4-11.0)
[2024-04-09 13:29] LABS: Vitamin D,25 Hydroxy 64.1 ng/mL
[2024-04-09 13:36] LABS: ALB/GLOB Ratio 0.9 RATIO (0.9-2.4); AST(SGOT) 30 U/L (15-37); Alanine Aminotransfer ALT/SGPT 25 U/L (13-56); Albumin, Serum 3.7 g/dL (3.2-5.0); Alkaline Phosphatase 67 U/L (45-117); Anion Gap 6 (5-15); BUN 12 mg/dL (7-18); Calcium,Total 9.4 mg/dL (8.5-10.1); Chloride 105 mmol/L (98-107); EST Glomerular Filtration Rate 58 mL/min (>60); Est Glom Filt Rate - Afr Amer 70 mL/min (>60); Globulin 4.2 g/dL (2.2-4.2); Glucose 89 mg/dL (74-106); Potassium 4.4 mmol/L (3.5-5.1); Protein, Total 7.9 g/dL (6.4-8.2); Sodium Level 139 mmol/L (136-145)
== END | disposition home or self-care (01) ==
LOC: POLAB3 12:54
PROVIDERS: PCP Family Medicine Geriatric Medicine; Visit Provider Family Medicine Geriatric Medicine
DX: R53.83 Other fatigue (principal); E55.9 Vitamin D deficiency, unspecified
CPT/HCPCS: 36415; 80053; 82306; 84443; 85025

== ENCOUNTER → 2024-05-28 | Outpatient (CLI) | payer MEDICARE, OTHER, SELFPAY ==
[2024-05-28 11:04] LABS: Thyroid Stim Hormone (TSH) 0.781 uIU/mL (0.358-3.740)
== END | disposition home or self-care (01) ==
LOC: LAB 10:09
PROVIDERS: PCP Family Medicine Geriatric Medicine; Referring Provider Internal Medicine Endocrinology, Diabetes & Metabolism; Visit Provider Internal Medicine Endocrinology, Diabetes & Metabolism
DX: E05.00 Thyrotoxicosis with diffuse goiter without thyrotoxic crisis or storm (principal)
CPT/HCPCS: 36415; 84443

== ENCOUNTER → 2024-08-24 | Outpatient (CLI) | payer MEDICARE, OTHER, SELFPAY ==
[2024-08-24 11:41] LABS: T4 Free Direct 1.13 ng/dL (0.76-1.46); Thyroid Stim Hormone (TSH) 0.951 uIU/mL (0.358-3.740)
== END | disposition home or self-care (01) ==
LOC: LAB 10:54
PROVIDERS: PCP Family Medicine Geriatric Medicine; Referring Provider Internal Medicine Endocrinology, Diabetes & Metabolism; Visit Provider Internal Medicine Endocrinology, Diabetes & Metabolism
DX: E05.00 Thyrotoxicosis with diffuse goiter without thyrotoxic crisis or storm (principal)
CPT/HCPCS: 36415; 84439; 84443

== ENCOUNTER → 2024-11-22 | Outpatient (CLI) | payer MEDICARE, OTHER, SELFPAY | END | disposition home or self-care (01) | LOC: LAB 12:09 | PROVIDERS: PCP Family Medicine Geriatric Medicine; Referring Provider Internal Medicine Endocrinology, Diabetes & Metabolism; Visit Provider Internal Medicine Endocrinology, Diabetes & Metabolism | DX: E05.00 Thyrotoxicosis with diffuse goiter without thyrotoxic crisis or storm (principal) | CPT/HCPCS: 36415; 84439; 84443 ==

== ENCOUNTER → 2025-03-12 | Outpatient (CLI) | payer MEDICARE, OTHER, SELFPAY | END | disposition home or self-care (01) | LOC: LAB 09:54 | PROVIDERS: PCP Family Medicine Geriatric Medicine; Referring Provider Internal Medicine Endocrinology, Diabetes & Metabolism; Visit Provider Internal Medicine Endocrinology, Diabetes & Metabolism | DX: E05.00 Thyrotoxicosis with diffuse goiter without thyrotoxic crisis or storm (principal) | CPT/HCPCS: 36415; 84439; 84443 ==

== ENCOUNTER → 2025-04-10 | Outpatient (CLI) | payer MEDICARE, OTHER, SELFPAY ==
[2025-04-10 13:07] LABS: Hematocrit 43.4 % (37-47); Hemoglobin 14.8 g/dL (12.0-15.0); Immature Granulocytes Count 0.030 X10^3/uL (0.0-0.0); Mean Corp Hgb Conc 34.1 g/dL (32-36); Mean Corpuscular Volume 92.9 fL (81-99); Mean Platelet Vol. 9.9 fl (6.2-12.0); NRBC Flagged by Analyzer 0 % (0-5); Platelet Count 239 K/mm3 (150-450); RBC Distribution Width CV 12.6 % (11.6-14.6); RBC Distribution Width SD 43.0 fl (35.1-43.9); Red Blood Count 4.67 M/mm3 (4.2-5.4); White Blood Count 9.0 K/mm3 (4.4-11.0)
[2025-04-10 14:20] LABS: AST(SGOT) 25 U/L (<=31); Alanine Aminotransfer ALT/SGPT 20 U/L (<=34); Albumin, Serum 4.2 g/dL (3.4-4.8); Alkaline Phosphatase 66 U/L (35-104); Anion Gap 13 (5-15); BUN 11 mg/dL (4-19); BUN/Creat Ratio 12.3 RATIO (10-20); Calcium,Total 9.3 mg/dL (7.6-11.0); Carbon Dioxide 21.8 mmol/L (21.0-32.0); Chloride 105 mmol/L (98-108); Globulin 3.1 g/dL (2.2-4.2); Glucose 90 mg/dL (70-99); Potassium 3.9 mmol/L (3.3-5.1); Vitamin D,25 Hydroxy 73.2 ng/mL (30-100)
[2025-04-10 20:48] LABS: Xtra Tube Kwok EXTRA TUBE
== END | disposition home or self-care (01) ==
LOC: POLAB3 12:47
PROVIDERS: PCP Family Medicine Geriatric Medicine; Visit Provider Family Medicine Geriatric Medicine
DX: E03.9 Hypothyroidism, unspecified (principal); R53.83 Other fatigue; E55.9 Vitamin D deficiency, unspecified
CPT/HCPCS: 36415; 80053; 82306; 84443; 85025

== ENCOUNTER → 2025-04-29 | Outpatient (CLI) | payer MEDICARE, OTHER, SELFPAY ==
--- NOTE | 2025-04-29 16:43 | CT_ITS ---
PROCEDURE: LOW DOSE CT LUNG SCREENING 04/29/2025 REASON FOR EXAM: PERSONAL HISTORY OF NICOTINE DEPENDENCE TECHNIQUE: Procedure Code: [id number] Modality: CT Procedure: LOW DOSE CT LUNG SCREENING Coronal and Sagittal reconstruction series were provided. One or more dose reduction techniques were used (e.g., Automated exposure control, adjustment of the mA and/or kV according to patient size, use of iterative reconstruction technique). REFERENCE LINK: [employer] Lung-RADS FINDINGS: A 2 mm nodular density is noted in a subpleural aspect of the right upper lobe (series 2, image 122). Otherwise the lungs are clear. No airspace consolidation, pleural effusion, or additional pulmonary nodule. The heart is normal in size. Extensive atherosclerotic calcifications are noted within the coronary arteries and thoracic aorta. No thoracic lymphadenopathy. Mild midthoracic spondylosis. CT/Low Dose CT Lung Screening IMPRESSION: Lung-RADS Category: 3 PROBABLY BENIGN (BASED ON IMAGING FEATURES OR BEHAVIOR). RECOMMEND 6 MONTH LDCT. Other Significant Findings: Atherosclerosis. Reading Location: [id number]
--- OUTSIDE RECORDS SUMMARY | 2025-04-29 16:52 | XMS RPT_ITS | CCD ---
Author Organization [facility] CliniSy[facility]v Care Team Providers Care Commutator Inspector Name Role Phone Bennett Fontenot Unavailable Unavailable AndadánShannan lao Unavailable Unavailab le Kirit Washington Unavailable Unavailable No Doctor Assigned, Nodr Unavailable Unavail able Annita Reeder Unavailable Unavailable Annita Reeder Unavailable Unavailable No Doctor Assigned, Nodr Unavailable Unavail able Dr. Yonatan Hughes Chi Primary Care Provider Saul, Dr. Yonatan Orellana Referring Provider Dr. Chante Galvin Attending Provider Saul, Dr. Yonatan Orellana Primary Care Provider Saul, Dr. Yonatan Orellana Referring Provider Dr. Chante Galvin Attending Provider Saul, Dr. Yonatan Orellana Referring Provider Dr. Chante Galvin Attending Provider Saul, Dr. Yonatan Orellana Referring Provider Dr. Chante Galvin Attending Provider Saul LEON, Dr. Yonatan Orellana Primary Care Provider Nikole ELON, Dr. Muñiz Attending Provider Nikole LEON, Dr. Muñiz Referring Provider Saul LEON, Dr. Yonatan Orellana Primary Care Physician Nikole LEON, Dr. Muñiz Attending Physician Nikole LEON, Dr. Muñiz Referring Provider Yonatan Hughes Chi Primary Care Unavailable Annita Reeder Attending Unavailable Annita Reeder Referring Unavailable Saul, Yonatan Chi Primary Care Unavailable Annita Reeder Attending Unavailable Annita Reeder Referring Unavailable NovAnnita couch Attending Unavailable Saul, Yonatan Chi Primary Care Unavailable NovMan coucha Referring Unavailable Saul, Yonatan Chi Primary Care Unavailable Nikole, Annita Attending Unavailable Nikole, Annita Referring Unavailable Saul, Yonatan Chi Primary Care Unavailable Saul, Yonatan Chi Attending Unavailable Saul, Yonatan Chi Referring Unavailable Saul, Yonatan Chi Primary Care Unavailable Saul, Yonatan Chi Attending Unavailable Medications Current Medications Medication Drug Class(es) Dates Sig (Normalized) Sig (Original) [id number] 200 actuat albuterol 0.09 mg/actuat metered dose inhaler (15 sources) beta2-Adrenergic Agonist Start: 03-18-2021 Start: 03-18-2021 Albuterol Sulf ate (Proair Hfa) 90 mcg/actuation HFA aerosol inhaler Active 1 INH INHALATION ONCE March 17, 2021 11:00pm cetirizine hydrochloride 10 mg oral tablet (13 sources) Histamine-1 Receptor Antagonist Start: 03-22-2022 take 1 tablet by mouth once daily as needed cholecalciferol 0.025 mg oral capsule (20 sources) Vitamin D Start: 03-24-2023 take 1 capsule by mouth once daily Start: 10-20-2017 End: 03-24-2023 take 1 capsule by mouth once daily Cholecalciferol (Vitamin D3) 1,000 unit capsule Discontinued 1000 U PO daily October 20, 2017 12:00am March 24, 2023 9:52am Start: 03-11-2017 take 1 tablet by [facility] once daily VITAMIN D3 1000 UNIT TABS One tablet by mouth daily CHOLECALCIFEROL [id number] Bennett Fontenot 30 actuat fluticasone furoat e 0.1 mg/actuat / vilanterol 0.025 mg/actuat dry powder inhaler (15 sources) Corticosteroid, beta2-Adrenergic Agonist Start: 03-18-2021 Start: 03-18-2021 Fluticasone Fu roate-Vilanterol (Breo Ellipta) 100-25 mcg/dose blister with device Active 1 INH INHALATION DAILY March 17, 2021 11:00pm methIMAzole 5 mg oral tablet (20 sources) Thyroid Hormone Synthesis Inhibitor Start: 03-24-2023 take 0.5 tablet by mouth every week Start: 03-24-2023 take 0.5 tablet by m outh every week Methimazole Active 2.5 MG PO daily March 24, 2023 8:51am 1/2 tab x3 per week Start: 03-22-2022 End: 03-24-2023 take 2.5 mg by mouth every week Methimazole 5 mg table t Discontinued 2.5 mg PO daily March 22, 2022 11:34am March 24, 2023 9:52am x4 per week Start: 03-22-2022 End: 03-24-2023 take 2.5 mg by mouth every week Methimazole Discontinu ed 2.5 MG PO daily March 22, 2022 10:34am March 24, 2023 8:52am x4 per week Start: 10-20-2017 End: 03-22-2022 take 1 tablet by mouth once daily Methimazole 5 mg tablet Discontinued 5 mg PO daily October 20, 2017 12:00am March 22, 2022 11:35am Start: 03-11-2017 METHIMAZOLE 5 MG TABS 1/2 tab 5 days a week METHIMAZOLE [id number] Bennett Fontenot montelukast 10 mg oral tablet (13 sources) Leukotriene Receptor Antagonist Start: 03-22-2022 take 1 tablet by mouth once daily Completed/Discontinued Medications Medication Drug Class(es) Dates Sig (Normalized) Sig (Original) loratadine 10 mg oral tablet (15 sources) Start: 12-20-2018 End: 03-22-2022 take 1 tablet by mouth once daily Loratadine (Claritin) 10 mg tablet Discontinued 10 mg PO DAILY December 20, 2018 12:00am March 22, 2022 11:32am Problems Problem Classification Problem Date Documented Da te Episodic/Chronic Osteoporosis (9 sources) Osteoporosis; Translations: [Age-related osteoporosis without current pathological fracture] 03-24-2023 Chronic Comment on above: repeat BMD 2022, see s metrology technician, declines therapy at present. Screening and history of mental health and substance abuse codes (1 source) Personal history of nicotine dependence; Translations: [Personal history of nicotine dependence] Onset: 04-16-2025 Episodic Thyroid disorders (16 sources) Graves' disease; Translations: [Thyrotoxicosis with diffuse goiter without thyrotoxic crisis or storm] Onset: 03-29-2025 12-20-2018 Chronic Unclassified (2 sources) No current problems or disability 03-11-2017 Results Test Name Value Interpretation Reference Range Facility CBC W/Diff, Automatedon 10-0 Absolute Lymph 3.05 X10 3/uL Normal 0.83-4.51 [facility] Comment on above: Performed By: #### L 100.0100, L500.4050, [id number], [id number] #### [facility] [address] [place], [address] Absolute Neut 5.3 X10 3/uL Normal 2.0-7.7 [facility] Comment on above: Performed By: #### L 100.0100, [id number], [id number], [id number] #### [facility] [address] [place], [address] Basophils/100 WBC (Bld) 0.7 % Normal 0-1 [facility] Comment on above: Performed By: #### L 100.0100, [id number], [id number], [id number] #### [facility] [address] [place], [address] Eosinophils/100 WBC (Bld) 1.4 % Normal 0-5 [facility] Comment on above: Performed By: #### L 100.0100, [id number], [id number], [id number] #### [facility] [address] [place], [address] Erythrocyte distribution width (RBC) [Ratio] 12.6 % Normal 11.6-14.6 [facility] Comment on above: Performed By: #### L 100.0100, [id number], [id number], [id number] #### [facility] [address] [place], [address] Hematocrit (Bld) [Volume fraction] 43.4 % Normal 37-47 [facility] Comment on above: Performed By: #### L 100.0100, [id number], [id number], [id number] #### [facility] [address] [place], [address] Hemoglobin (Bld) [Mass/Vol] 14.8 g/dL Normal 12.0-15.0 [facility] Comment on above: Performed By: #### L 100.0100, [id number], [id number], [id number] #### [facility] [address] [place], [address] IG% 0.300 Normal 0.0-0.9 [facility] Comment on above: Result Comment: IG% - Immature Granulocytes (promyelocytes, myelocytes and metamyelocytes) > 1% indicates that a LEFT SHIFT is Present. Performed By: #### L 100.0100, [id number], [id number], [id number] #### [facility] [address] [place], [address] Lymphocytes/100 WBC (Bld) 33.8 % Normal 19-41 [facility] Comment on above: Performed By: #### L 100.0100, [id number], [id number], [id number] #### [facility] [address] [place], [address] MCH (RBC) [Entitic mass] 31.7 pg Normal 27.0-32.0 [facility] Comment on above: Performed By: #### L 100.0100, [id number], [id number], [id number] #### [facility] [address] [place], [address] MCHC (RBC) [Mass/Vol] 34.1 g/dL Normal 32-36 [facility] Comment on above: Performed By: #### L 100.0100, [id number], [id number], [id number] #### [facility] [address] [place], [address] MCV (RBC) [Entitic vol] 92.9 fL Normal 81-99 [facility] Comment on above: Performed By: #### L 100.0100, [id number], [id number], [id number] #### [facility] [address] [place], [address] Monocytes/100 WBC (Bld) 5.4 % Normal 0-10 [facility] Comment on above: Performed By: #### L 100.0100, [id number], [id number], [id number] #### [facility] [address] [place], [address] Neutrophils/100 WBC (Bld) 58.4 % Normal 47-70 [facility] Comment on above: Performed By: #### L 100.0100, [id number], [id number], [id number] #### [facility] [address] [place], [address] Nucleated RBC (Bld) [#/Vol] 0 10*3/uL Normal 0-5 [facility] Comment on above: Performed By: #### L 100.0100, [id number], [id number], [id number] #### [facility] [address] [place], [address] Platelet mean volume (Bld) [Entitic vol] 9.9 fL Normal 6.2-12.0 [facility] Comment on above: Performed By: #### L 100.0100, [id number], [id number], [id number] #### [facility] [address] [place], [address] Platelets (Bld) [#/Vol] 239 10*3/uL Normal 150-450 [facility] Comment on above: Performed By: #### L 100.0100, [id number], [id number], [id number] #### [facility] [address] [place], [address] RBC (Bld) [#/Vol] 4.67 10*6/uL Normal 4.2-5.4 [facility] Comment on above: Performed By: #### L 100.0100, [id number], [id number], [id number] #### [facility] [address] [place], [address] RDW SD 43.0 fl Normal 35.1-43.9 [facility] Comment on above: Performed By: #### L 100.0100, [id number], [id number], [id number] #### [facility] [address] [place], [address] WBC (Bld) [#/Vol] 9.0 10*3/uL Normal 4.4-11.0 [facility] Comment on above: Performed By: #### L 100.0100, [id number], [id number], [id number] #### [facility] [address] [place], [address] Comprehensive Metabolic Prof [facility] 04-10-2025 Albumin [Mass/Vol] 4.2 g/dL Normal 3.4-4.8 [facility] Comment on above: Performed By: #### L 100.0100, [id number], [id number], [id number] #### [facility] [address] [place], [address] Albumin/Globulin [Mass ratio] 1.4 {ratio} Normal 0.9-2.4 [facility] Comment on above: Performed By: #### L 100.0100, [id number], [id number], [id number] #### [facility] [address] [place], [address] ALK PHOS 66 U/L Normal 35-104 [facility] Comment on above: Performed By: #### L 100.0100, [id number], [id number], [id number] #### [facility] [address] [place], [address] ALT [Catalytic activity/Vol] 20 U/L Normal <=34 [facility] Comment on above: Performed By: #### L 100.0100, [id number], [id number], [id number] #### [facility] [address] [place], [address] AST [Catalytic activity/Vol] 25 U/L Normal <=31 [facility] Comment on above: Result Comment: Hemo lysis present, Results??could be affected. ?? Performed By: #### L 100.0100, [id number], [id number], [id number] #### [facility] [address] [place], [address] Bilirubin [Mass/Vol] 0.25 mg/dL Normal 0.00-1.30 [facility] Comment on above: Performed By: #### L 100.0100, [id number], [id number], [id number] #### [facility] [address] [place], [address] BUN/CRE 12.3 RATIO Normal 10-20 [facility] Comment on above: Performed By: #### L 100.0100, [id number], [id number], [id number] #### [facility] [address] [place], [address] Calcium [Mass/Vol] 9.3 mg/dL Normal 7.6-11.0 [facility] Comment on above: Performed By: #### L 100.0100, [id number], [id number], [id number] #### [facility] [address] [place], [address] Chloride [Moles/Vol] 105 mmol/L Normal 98-108 [facility] Comment on above: Performed By: #### L 100.0100, [id number], [id number], [id number] #### [facility] [address] [place], [address] CO2 [Moles/Vol] 21.8 mmol/L Normal 21.0-32.0 [facility] Comment on above: Performed By: #### L 100.0100, [id number], [id number], [id number] #### [facility] [address] [place], [address] Creatinine [Mass/Vol] 0.85 mg/dL Normal 0.70-1.20 [facility] Comment on above: Performed By: #### L 100.0100, [id number], [id number], [id number] #### [facility] [address] [place], [address] GAP 13 Normal 5-15 [facility] Comment on above: Performed By: #### L 100.0100, [id number], [id number], [id number] #### [facility] [address] [place], [address] GFR/1.73 sq M.predicted among non-blacks MDRD (S/P/Bld) [Vol rate/Area] 72 mL/min/{1.73_m2} Normal >60 [facility] Comment on above: Result Comment: mL/m in/1.73m2 CKD-EPI Creatinine Equation (2020) Performed By: #### L 100.0100, [id number], [id number], [id number] #### [facility] [address] [place], [address] Globulin (S) [Mass/Vol] 3.1 g/dL Normal 2.2-4.2 [facility] Comment on above: Performed By: #### L 100.0100, [id number], [id number], [id number] #### [facility] [address] [place], [address] Glucose [Mass/Vol] 90 mg/dL Normal 70-99 [facility] Comment on above: Performed By: #### L 100.0100, [id number], [id number], [id number] #### [facility] [address] [place], [address] Potassium [Moles/Vol] 3.9 mmol/L Normal 3.3-5.1 [facility] Comment on above: Result Comment: Hemo lysis present, Results??could be affected. ?? Performed By: #### L 100.0100, [id number], [id number], [id number] #### [facility] [address] [place], [address] Sodium [Moles/Vol] 140 mmol/L Normal 133-145 [facility] Comment on above: Performed By: #### L 100.0100, [id number], [id number], [id number] #### [facility] [address] [place], [address] T PROT 7.4 g/dL Normal 5.9-8.4 [facility] Comment on above: Performed By: #### L 100.0100, [id number], [id number], [id number] #### [facility] [address] [place], [address] Urea nitrogen [Mass/Vol] 11 mg/dL Normal 4-19 [facility] Comment on above: Performed By: #### L 100.0100, [id number], [id number], [id number] #### [facility] [address] [place], [address] Thyroid Stim Hormone (TSH)on 04-10-2025 TSH 1.190 uIU/mL Normal 0.300-4.200 [facility] Comment on above: Performed By: #### L 100.0100, [id number], [id number], [id number] #### [facility] [address] [place], [address] Vitamin D,25 Hydroxyon 04-10 Vitamin D 25-OH 73.2 ng/mL Normal 30-100 [facility] Comment on above: Result Comment: Roseanne min D Status Deficiency: <20 ng/mL (50nmol/L) Insufficiency: 20-30 ng/mL (50-75 nmol/L) Sufficiency: 30-100 ng/mL (75-250 nmol/L) Toxicity: >100 ng/mL (>250 nmol/L) Performed By: #### L 100.0100, [id number], [id number], [id number] #### [facility] [address] [place], [address] T4 Free Directon 03-12-2025 T4 FREE DIRECT 1.50 ng/dL High 0.76-1.46 [facility] Comment on above: Performed By: #### L 501.9520, [id number] #### [facility] [address] [place], [address] T4 freeOrdered By: Annita steward on 03-12-2025 Free T4 [Mass/Vol] 1.50 ng/dL High 0.76-1.46 [facility] TSH DL <= 0.005 mIU/L QnOrde red By: Annita Reeder on 03-12-2025 TSH Qn 0.994 uIU/mL 0.300-4.200 [facility] Thyroid Stim Hormone (TSH)on 03-12-2025 TSH 0.994 uIU/mL Normal 0.300-4.200 [facility] Comment on above: Performed By: #### L 501.9520, [id number] #### [facility] [address] [place], [place], [id number] T4 Free Directon 11-22-2024 T4 FREE DIRECT 1.30 ng/dL Normal 0.76-1.46 [facility] Comment on above: Performed By: #### L 501.9520, [id number] #### [facility] [address] [place], [place], [id number] T4 freeOrdered By: Annita steward on 11-22-2024 Free T4 [Mass/Vol] 1.30 ng/dL 0.76-1.46 [facility] TSH DL <= 0.005 mIU/L QnOrde red By: Annita Reeder on 11-22-2024 TSH Qn 1.250 uIU/mL 0.300-4.200 [facility] Thyroid Stim Hormone (TSH)on 11-22-2024 TSH 1.250 uIU/mL Normal 0.300-4.200 [facility] Comment on above: Performed By: #### L [id number], [id number] #### [facility] [address] [facility] [id number] Direct serum free thyroxine (FT4) measurementOrdered By: Annita Reeder on 08-24-2024 Free T4 [Mass/Vol] 1.13 ng/dL 0.76-1.46 [facility] Serum or plasma thyroid stim ulating hormone (TSH) measurement (units/volume)Ordered By: Annita Reeder on 08-24-2024 TSH Qn 0.951 uIU/mL 0.358-3.740 [facility] T4 Free Directon 08-24-2024 T4 FREE DIRECT 1.13 ng/dL Normal 0.76-1.46 [facility] Comment on above: Performed By: #### L [id number], [id number] #### [facility] [address] [place], [address] Thyroid Stim Hormone (TSH)on 08-24-2024 TSH 0.951 uIU/mL Normal 0.358-3.740 [facility] Comment on above: Performed By: #### L [id number], [id number] #### [facility] [address] [place], [address] Thyroid Stim Hormone (TSH)on 05-28-2024 TSH 0.781 uIU/mL Normal 0.358-3.740 [facility] Comment on above: Performed By: #### L [id number] #### [facility] [address] [facility] [place], [address] Serum or plasma thyroid stim ulating hormone (TSH) measurement (units/volume)Ordered By: Annita Reeder on 09-08-2023 TSH Qn 1.31 uIU/mL 0.358-3.74 [facility] Thin prep Papanicolaou smear with manual screeningOrdered By: Annita Reeder on 09-08-2023 Thin prep Papanicolaou smear with manual screening 1.15 ng/dL 0.76-1.46 [facility] - Chemistry and C hemistry - challengeOrdered By: Annita Reeder on 05-28-2023 Free T4 [Mass/Vol] 1.09 ng/dL 0.76-1.46 [facility] No Panel InformationOrdered By: Annita Reeder on 05-28-2023 Thyroid Stimulating Hormone (TSH) 1.55 uIU/mL 0.358-3.74 [facility] Absolute lymphocyte countOrd ered By: Yonatan Hughes on 04-04-2023 Lymphocytes Auto (Unsp spec) [#/Vol] 3.20 10*3/uL 0.83-4.51 [facility] Basophil percentageOrdered B y: Yonatan Hughes on 04-04-2023 Basophils/100 WBC (Bld) 0.6 % 0-1 [facility] Bilirubin [Mass/Vol] 0.30 mg/dL 0.20-1.00 [facility] Comment on above: For patients on eltr ombopag therapy, use of Dimension [place] TBIL is not recommended. Chloride [Moles/Vol] 108 mmol/L 98-107 [facility] Eosinophils/100 WBC (Bld) 1.1 % 0-5 [facility] Glucose [Mass/Vol] 94 mg/dL 74-106 [facility] Neutrophils (Bld) [#/Vol] 5.9 10*3/uL 2.0-7.7 [facility] Neutrophils/100 WBC (Bld) 61.0 % 47-70 [facility] Potassium [Moles/Vol] 3.9 mmol/L 3.5-5.1 [facility] Protein [Mass/Vol] 7.5 g/dL 6.4-8.2 [facility] Sodium [Moles/Vol] 139 mmol/L 136-145 [facility] WBC (Bld) [#/Vol] 9.7 10*3/uL 4.4-11.0 [facility] Blood erythrocytes count (nu mber/volume)Ordered By: Yonatan Hughes on 04-04-2023 RBC (Bld) [#/Vol] 4.68 10*6/uL 4.2-5.4 [facility] Blood hemoglobin measurement (mass/volume)Ordered By: Yonatan Hughes on 04-04-2023 Hemoglobin (Bld) [Mass/Vol] 14.8 g/dL 12.0-15.0 [facility] Blood lymphocytes/100 leukoc ytesOrdered By: Yonatan Hughes on 04-04-2023 Lymphocytes/100 WBC (Bld) 32.9 % 19-41 [facility] Blood monocytes/100 leukocyt esOrdered By: Yonatan Hughes on 04-04-2023 Monocytes/100 WBC (Bld) 4.2 % 0-10 [facility] Blood platelet mean volumeOr dered By: Yonatan Hughes on 04-04-2023 Platelet mean volume (Bld) [Entitic vol] 10.3 fL 6.2-12.0 [facility] Determination of erythrocyte mean corpuscular volume (MCV)Ordered By: Yonatan Hughes on 04-04-2023 MCV (RBC) [Entitic vol] 95.3 fL 81-99 [facility] Hematocrit Auto (Bld) [Volum e fraction]Ordered By: Yonatan Saul on 04-04-2023 Hematocrit (Bld) [Volume fraction] 44.6 % 37-47 [facility] - Chemistry and C hemistry - challengeOrdered By: [facility] ALP [Catalytic activity/Vol] 62 U/L 45-117 [facility] ALT [Catalytic activity/Vol] 26 U/L 13-56 [facility] CO2 [Moles/Vol] 25.0 mmol/L 21.0-32.0 [facility] Globulin (S) [Mass/Vol] 3.9 g/dL 2.2-4.2 [facility] Urea nitrogen/Creatinine [Mass ratio] 12.8 mg/mg 10-20 [facility] - Hematology and Cell countsOrdered By: [facility] on 04-04-2023 Erythrocyte distribution width (RBC) [Entitic vol] 44.1 fL 35.1-43.9 [facility] Erythrocyte distribution width (RBC) [Ratio] 12.6 % 11.6-14.6 [facility] Immature granulocytes/100 WBC (Bld) 0.200 % 0.0-0.9 [facility] Comment on above: IG% - Immature Granu locytes (promyelocytes, myelocytes and metamyelocytes) > 1% indicates that a LEFT SHIFT is Present. MCH (RBC) [Entitic mass] 31.6 pg 27.0-32.0 [facility] Nucleated RBC/100 WBC (Bld) [Ratio] 0 % 0-5 [facility] MCHC Auto (RBC) [Mass/Vol]Or dered By: Yonatan Hughes on 04-04-2023 MCHC (RBC) [Mass/Vol] 33.2 g/dL 32-36 [facility] No Panel InformationOrdered By: [facility]-2023 Estimated GFR (MDRD) Amer 76 mL/min >60 [facility] Comment on above: GFR Calc Estimated GFR (MDRD) Non-Af Amer 63 mL/min >60 [facility] Comment on above: Non- GFR Calc Thyroid Stimulating Hormone (TSH) 1.19 uIU/mL 0.358-3.74 [facility] Vitamin D 25-Hydroxy 70.6 ng/mL [facility] Comment on above: Vitamin D 25(OH) Sta tus Range Deficiency <20 ng/mL (50nmol/L) Insufficiency 20 - 30 ng/mL (50 - 75 nmol/L) Sufficiency 30 - 100 ng/mL (75 - 250 nmol/L) Toxicity >100 ng/mL (>250 nmol/L) Platelets bldOrdered By: Yonatan Hughes on 04-04-2023 Platelets (Bld) [#/Vol] 258 10*3/uL 150-450 [facility] Serum or plasma albumin real urement (mass/volume)Ordered By: Yonatan Hughes on 04-04-2023 Albumin [Mass/Vol] 3.6 g/dL 3.2-5.0 [facility] Serum or plasma albumin/glob ulin mass ratioOrdered By: Yonatan Hughes on 04-04-2023 Albumin/Globulin [Mass ratio] 0.9 {ratio} 0.9-2.4 [facility] Serum or plasma calcium real urement (mass/volume)Ordered By: Yonatan Hughes on 04-04-2023 Calcium [Mass/Vol] 9.3 mg/dL 8.5-10.1 [facility] Serum or plasma creatinine m easurement (mass/volume)Ordered By: Yonatan Hughes on 04-04-2023 Creatinine [Mass/Vol] 0.94 mg/dL 0.55-1.02 [facility] Comment on above: The validity of the calculated GFR & GFRAA in patients over 70 years has not been determined. Clinical correlation is essential. Serum or plasma urea nitroge n measurement (mass/volume)Ordered By: Yonatan Hughes on 04-04-2023 Urea nitrogen [Mass/Vol] 12 mg/dL 7-18 [facility] Thin prep Papanicolaou smear with manual screeningOrdered By: Yonatan Hughes on 04-04-2023 Thin prep Papanicolaou smear with manual screening 18 U/L 15-37 [facility] Thin prep Papanicolaou smear with manual screening 6 5-15 [facility] Laboratory - Chemistry and C hemistry - challengeOrdered By: Annita Reeder on 03-10-2023 Free T4 [Mass/Vol] 1.15 ng/dL 0.76-1.46 [facility] No Panel InformationOrdered By: Annita Reeder on 03-10-2023 Miscellaneous Test See comment [facility] Comment on above: TEST RESULTS LIMITST SH Receptor Antibody (TBII) <0.3 U/LReference Range:Antibody Titer:<1.0 U/L = Negative1.1 - 1.5 U/L = Equivocal>1.5 U/L = Positive TESTING PERFORMED AT [facility]. ORIGINAL REPORT ON FILE IN LAB CONTAINS ADDITIONAL TEST SITE INFORMATION. Thyroid Stimulating Hormone (TSH) 1.41 uIU/mL 0.358-3.74 [facility] Laboratory - Chemistry and C hemistry - challengeOrdered By: Annita Reeder on 12-02-2022 Free T4 [Mass/Vol] 1.15 ng/dL 0.76-1.46 [facility] No Panel InformationOrdered By: Annita Reeder on 12-02-2022 Thyroid Stimulating Hormone (TSH) 1.55 uIU/mL 0.358-3.74 [facility] Laboratory - Chemistry and C hemistry - challengeOrdered By: Dr. Reeder on 09-03-2022 Free T4 [Mass/Vol] 1.10 ng/dL 0.76-1.46 [facility] No Panel InformationOrdered By: Dr. Reeder on 09-03-2022 Thyroid Stimulating Hormone (TSH) 1.56 uIU/mL 0.358-3.74 [facility] Laboratory - Microbiology an d Antimicrobial susceptibilityOrdered By: Dr. Hughes on 07-07-2022 SARS-CoV-2 (COVID-19) RNA NITZA+probe Ql (Unsp spec) Not detected Not Detect [facility] Comment on above: Normal Reference Ran ge: Not DetectedMethod:(RT-PCR) real-time reverse transcriptase PCRLuminex HERNESTO Instrument*The Food and Drug Administration (FDA) has issued an Emergency Use Authorization (EAU) for the HERNESTO SARS-CoV-2 Assay for the rapid detection of the virus that causes COVID-19. This test has been validated, but the FDAs independent review of this validation is pending.*Negative results do not preclude infection and should not be used as the sole basis for treatment or patient management. Optimum specimen types and timing for peak viral levels during infections caused by SARS-CoV-2 have not been determined. Collection of multiple specimens from the same patient may be necessary to detect the virus. The possibility of a false negative result should be considered if the patient has clinical presentation or has had recent exposure. No Panel InformationOrdered By: Dr. Hughes on 07-07-2022 Influenza Types A,B Direct FA (LOBITO) [facility] RSV Ag EIAOrdered By: Dr. Bhumika cho on 07-07-2022 RSV Ag Immune stain Ql (Tiss) [facility] Laboratory - Chemistry and C hemistry - challengeOrdered By: Dr. Reeder on 05-21-2022 Free T4 [Mass/Vol] 1.13 ng/dL 0.76-1.46 [facility] No Panel InformationOrdered By: Dr. Reeder on 05-21-2022 Thyroid Stimulating Hormone (TSH) 1.58 uIU/mL 0.358-3.74 [facility] Absolute lymphocyte counton 03-31-2022 Lymphocytes Auto (Unsp spec) [#/Vol] 3.28 10*3/uL 0.83-4.51 [facility] Work Phone: Basophil percentageon 2021 Basophils/100 WBC (Bld) 0.7 % 0-1 [facility] Work Phone: Bilirubin [Mass/Vol] 0.20 mg/dL 0.20-1.00 [facility] Work Phone: Comment on above: For patients on eltr ombopag therapy, use of Dimension [place] TBIL is not recommended. Chloride [Moles/Vol] 106 mmol/L 98-107 [facility] Work Phone: [phone] Eosinophils/100 WBC (Bld) 1.9 % 0-5 [facility] Work Phone: [phone] Glucose [Mass/Vol] 119 mg/dL 74-106 [facility] Work Phone: [phone] Comment on above: Fasting Glucose resu lt from 100 to 125 mg/dL suggests IMPAIRED HOMEOSTASIS per A.D.A. criteria. Neutrophils (Bld) [#/Vol] 5.2 10*3/uL 2.0-7.7 [facility] Work Phone: Neutrophils/100 WBC (Bld) 57.0 % 47-70 [facility] Work Phone: Potassium [Moles/Vol] 3.6 mmol/L 3.5-5.1 [facility] Work Phone: Protein [Mass/Vol] 7.4 g/dL 6.4-8.2 [facility] Work Phone: Sodium [Moles/Vol] 141 mmol/L 136-145 [facility] Work Phone: WBC (Bld) [#/Vol] 9.2 10*3/uL 4.4-11.0 [facility] Work Phone: Blood erythrocytes count (nu mber/volume)on 03-31-2022 RBC (Bld) [#/Vol] 4.49 10*6/uL 4.2-5.4 [facility] Work Phone: Blood hemoglobin measurement (mass/volume)on 03-31-2022 Hemoglobin (Bld) [Mass/Vol] 14.6 g/dL 12.0-15.0 [facility] Work Phone: Blood lymphocytes/100 leukoc yteson 03-31-2022 Lymphocytes/100 WBC (Bld) 35.8 % 19-41 [facility] Work Phone: Blood monocytes/100 leukocyt eson 03-31-2022 Monocytes/100 WBC (Bld) 4.4 % 0-10 [facility] Work Phone: Blood platelet mean volumeon 03-31-2022 Platelet mean volume (Bld) [Entitic vol] 10.6 fL 6.2-12.0 [facility] Work Phone: Determination of erythrocyte mean corpuscular volume (MCV)on 03-31-2022 MCV (RBC) [Entitic vol] 94.9 fL 81-99 [facility] Work Phone: Hematocrit Auto (Bld) [Volum e fraction]on 03-31-2022 Hematocrit (Bld) [Volume fraction] 42.6 % 37-47 [facility] Work Phone: Laboratory - Chemistry and C hemistry - challengeon 03-31-2022 ALP [Catalytic activity/Vol] 60 U/L 45-117 [facility] Work Phone: ALT [Catalytic activity/Vol] 26 U/L 13-56 [facility] Work Phone: CO2 [Moles/Vol] 26.0 mmol/L 21.0-32.0 [facility] Work Phone: Globulin (S) [Mass/Vol] 3.9 g/dL 2.2-4.2 [facility] Work Phone: Urea nitrogen/Creatinine [Mass ratio] 13.5 mg/mg 10-20 [facility] Work Phone: Laboratory - Hematology and Cell countson 03-31-2022 Erythrocyte distribution width (RBC) [Entitic vol] 45.2 fL 35.1-43.9 [facility] Work Phone: Erythrocyte distribution width (RBC) [Ratio] 13.0 % 11.6-14.6 [facility] Work Phone: Immature granulocytes/100 WBC (Bld) 0.200 % 0.0-0.9 [facility] Work Phone: Comment on above: IG% - Immature Granu locytes (promyelocytes, myelocytes and metamyelocytes) > 1% indicates that a LEFT SHIFT is Present. MCH (RBC) [Entitic mass] 32.5 pg 27.0-32.0 [facility] Work Phone: Nucleated RBC/100 WBC (Bld) [Ratio] 0 % 0-5 [facility] Work Phone: MCHC Auto (RBC) [Mass/Vol]on 03-31-2022 MCHC (RBC) [Mass/Vol] 34.3 g/dL 32-36 [facility] Work Phone: No Panel Informationon 03-31 Estimated GFR (MDRD) Amer 74 mL/min >60 [facility] Work Phone: Comment on above: GFR Calc Estimated GFR (MDRD) Non-Af Amer 61 mL/min >60 [facility] Work Phone: Comment on above: Non- GFR Calc Thyroid Stimulating Hormone (TSH) 1.51 uIU/mL 0.358-3.74 [facility] Work Phone: Vitamin D 25-Hydroxy 49.9 ng/mL [facility] [place] Work Phone: Comment on above: Vitamin D 25(OH) Sta tus Range Deficiency <20 ng/mL (50nmol/L) Insufficiency 20 - 30 ng/mL (50 - 75 nmol/L) Sufficiency 30 - 100 ng/mL (75 - 250 nmol/L) Toxicity >100 ng/mL (>250 nmol/L) Platelets bldon 03-31-2022 Platelets (Bld) [#/Vol] 255 10*3/uL 150-450 [facility] Work Phone: Serum or plasma albumin real urement (mass/volume)on 03-31-2022 Albumin [Mass/Vol] 3.5 g/dL 3.2-5.0 [facility] Work Phone: Serum or plasma albumin/glob ulin mass ratioon 03-31-2022 Albumin/Globulin [Mass ratio] 0.9 {ratio} 0.9-2.4 [facility] Work Phone: Serum or plasma calcium real urement (mass/volume)on 03-31-2022 Calcium [Mass/Vol] 8.8 mg/dL 8.5-10.1 [facility] Work Phone: Serum or plasma creatinine m easurement (mass/volume)on 03-31-2022 Creatinine [Mass/Vol] 0.96 mg/dL 0.55-1.02 [facility] Work Phone: Comment on above: The validity of the calculated GFR & GFRAA in patients over 70 years has not been determined. Clinical correlation is essential. Serum or plasma urea nitroge n measurement (mass/volume)on 03-31-2022 Urea nitrogen [Mass/Vol] 13 mg/dL 7-18 [facility] Work Phone: Thin prep Papanicolaou smear with manual screeningon 03-31-2022 Thin prep Papanicolaou smear with manual screening 16 U/L 15-37 [facility] Work Phone: Thin prep Papanicolaou smear with manual screening 9 5-15 [facility] Work Phone: Laboratory - Chemistry and C hemistry - challengeon 03-11-2022 Free T4 [Mass/Vol] 1.14 ng/dL 0.76-1.46 [facility] Work Phone: No Panel Informationon 03-11 Thyroid Stimulating Hormone (TSH) 1.31 uIU/mL 0.358-3.74 [facility] Work Phone: Laboratory - Chemistry and C hemistry - challengeon 11-13-2021 Free T4 [Mass/Vol] 1.11 ng/dL 0.76-1.46 [facility] Work Phone: No Panel Informationon 11-13 Thyroid Stimulating Hormone (TSH) 1.51 uIU/mL 0.358-3.74 [facility] Work Phone: Laboratory - Chemistry and C hemistry - challengeon 08-18-2021 Free T4 [Mass/Vol] 1.04 ng/dL 0.76-1.46 [facility] Work Phone: No Panel Informationon 08-18 Thyroid Stimulating Hormone (TSH) 1.58 uIU/mL 0.358-3.74 [facility] Work Phone: US THYROIDon 11-14-2020 US THYROID Patient Name: JOSE ENRIQUE APONTE STUDY: US THYROID 11/14/2020 9:54 am INDICATION: 65 y/o F with Nontoxic multinodular goiter. COMPARISON: 10/17/2017 ACCESSION NUMBER(S): [id number] ORDERING CLINICIAN: ANNITA REEDER TECHNIQUE: Routine ultrasound and color Doppler of the thyroid was performed. Static images were obtained for remote interpretation. FINDINGS: RIGHT THYROID LOBE: Right thyroid lobe: 5.4 x 1.8 x 2.3 cm. The parenchyma is homogeneous. The relative isoechoic 9 mm nodule at the lower pole on the prior exam was not redemonstrated at the right thyroid lobe at this time, but may correspond to a nodule at the isthmus. Vascularity: Unremarkable LEFT THYROID LOBE: Left thyroid lobe: 4.5 x 2 x 2.1 cm. Relatively homogeneous without discrete mass or cyst. Vascularity: Unremarkable ISTHMUS: Size: 0.5 cm in AP dimension. A slightly hypoechoic solid 1 x 9 mm nodule again may correspond to a nodule categorized at the inferior aspect of the right thyroid lobe previously. This nodule be considered ACR TI-RADS 3, not requiring follow-up given the size. IMPRESSION: Nodule at the isthmus as described, otherwise unremarkable. Electronically signed by: NUPUR STONE MD [facility] US Thyroidon 10-17-2017 US Thyroid Exam Date/Time:10/17/2017 09:14 EDTReason for Exam:NONTOXIC MULTINODULAR GOITERReportTHYROID ULTRASOUND FROM 10/17/2017.COMPARISON: Most recent comparison is 10/11/2016. Comparison also made to04/17/2015.FINDINGS: Mandujano scale and color Doppler performed. The right thyroid is 5.5 x2.6 x 2.1 cm. The thyroid gland is heterogeneous in echotexture. There is anisoechoic to hyperechoic nodule in the inferior right gland measuring 9 mmmaximally. The hypoechoic mass previously seen posterior inferior right glandmeasuring up to 1.5 cm is not clearly demonstrated.An isoechoic nodule is seen in the mid right gland which measures up to 8 mm indiameter previously measuring 9 mm.More inferiorly, an isoechoic nodule measures 9 mm previously measuring 9 mm.No developing hypoechoic solid masses in the right thyroid. The left thyroidgland measures 4.4 x 2.2 x 2.1 cm. It is heterogeneous in echotexture withouta discrete mass. Thyroid isthmus is unremarkable.IMPRESSI ON:1. Heterogeneous thyroid gland with small isoechoic to slightly hyperechoicnodules in the mid and inferior right gland. These are TI-RADS 3 lesions whichdoes not require specific imaging follow up as size is of less than 1.5 cm.2. Previously seen 1.5 cm hypoechoic mass at the inferior pole the right glandis either resolved or significantly smaller now measuring no greater than 9 mm.No specific follow up required at this size.3. No new findings. FINAL REPORT Dictated: 10/17/2017 12:42 pm Chavez Wright MD RSigned (Electronic Signature): 10/17/2017 12:42 pmSigned by: Chavez Wright MD Technologist: [facility] Clinical Lists Update: Pre05-24-2017 Tobacco use [facility] Never smoker Invalid Interpretation Code [facility] Clinical Lists Update: Pre development advisor 03-11-2017 Tobacco smoking status NHIS Never Invalid Interpretation Code [facility] Work Phone: Tobacco use [facility] Never smoker Invalid Interpretation Code [facility] Work Phone: No Panel Information Influenza Types A,B Direct FA (LOBITO) [facility] Work Phone: RSV Ag EIA RSV Ag Immune stain Ql (Tiss) [facility] Work Phone: Vital Signs Date Time Vital Sign Value Performing Clinician Murali patton 03-24-2023 09:50-0400 Body height 160.[address] Yonatan Hughes Work Phone: [facility] 03-24-2023 09:50-0400 Body mass index (BMI) [Ratio] 30.2 kg/m2 Dr. Yonatan Hughes Work Phone: [facility] 03-24-2023 09:50-0400 Body weight 77.[address] Yonatan Hughes Work Phone: [facility] 03-24-2023 09:50-0400 Diastolic blood pressure 78 mm[Hg] Dr. Yonatan Hughes Work Phone: [facility] 03-24-2023 09:50-0400 Systolic blood pressure 146 mm[Hg] Dr. Yonatan Hughes Work Phone: [facility] 03-22-2022 11:31-0400 Body height 160.[address] Yonatan Hughes Work Phone: [facility] Work Phone: 03-22-2022 11:31-0400 Body mass index (BMI) [Ratio] 30.3 kg/m2 Dr. Yonatan Hughes Work Phone: [facility] Work Phone: 03-22-2022 11:31-0400 Body weight 77.[address] Yonatan Hughes Work Phone: [facility] Work Phone: 03-22-2022 11:31-0400 Diastolic blood pressure 92 mm[Hg] Dr. Yonatan Hughes Work Phone: [facility] Work Phone: 03-22-2022 11:31-0400 Systolic blood pressure 165 mm[Hg] Dr. Yonatan Hughes Work Phone: [facility] Work Phone: Encounters Encounter Date Encounter Type Care Provider Facility Start: 04-29-2025 ambulatory [facility] Facility:[facility] Start: 04-10-[address] [facility] Facility:[facility] Start: 03-12-2025 End: 03-12-[address] Yonatan Hughes MD Work Phone: -Laboratory Start: 03-12-2025 End: 03-12-[address] Annita Reeder MD -Laboratory Work Phone: Start: 03-12-2025 End: 03-12-2025 ambulatory [facility] Facility:[facility] Start: 11-22-2024 End: 11-22-[address] Yonatan Hughes MD Work Phone: [facility] Work Phone: Start: 11-22-2024 End: 11-22-[address] Annita Reeder MD -Laboratory Work Phone: Start: 11-22-2024 End: 11-22-2024 ambulatory Annita Reeder Facility:[facility] Start: 08-24-2024 End: 08-24-[address] Annita Reeder MD -Laboratory Work Phone: Start: 08-24-2024 End: 08-24-2024 ambulatory [facility] Facility:[facility] Start: 05-28-2024 End: 05-28-2024 ambulatory [facility] Facility:[facility] Start: 09-08-2023 End: 09-08-2023 ambulatory [facility] Work Phone: Start: 09-08-2023 End: 09-08-2023 Patient encounter procedure [facility]-Laboratory Work Phone: Start: 05-28-2023 End: 05-28-[address] Yonatan Hughes Work Phone: [facility] Work Phone: Start: 05-28-2023 End: 05-28-[address] Yonatan Hughes Work Phone: [facility]-Laboratory Work Phone: Start: 04-04-2023 End: 04-04-[address] Yonatan Hughes Work Phone: [facility] Work Phone: Start: 04-04-2023 End: 04-04-[address] Yonatan Hughes Work Phone: [facility]-Laboratory, Phy Office 3rd Flr Start: 03-31-2023 End: 03-31-[address] Yonatan Hughes Work Phone: [facility]-Outpatient Bone Densitometry Work Phone: Start: 03-24-2023 End: 03-24-[address] Yonatan Hughes Work Phone: [facility] Work Phone: Start: 03-21-2023 End: 03-21-[address] Yonatan Hughes Work Phone: [facility] Work Phone: Start: 03-21-2023 End: 03-21-[address] Yonatan Hughes Work Phone: [facility]-Outpatient Breast Imaging Work Phone: Start: 03-10-2023 End: 03-10-2023 ambulatory [facility] Work Phone: Start: 03-10-2023 End: 03-10-2023 [facility] Start: 12-02-2022 End: 12-02-2022 ambulatory [facility] Work Phone: Start: 12-02-2022 End: 12-02-2022 [facility] Start: 09-03-2022 End: 09-03-2022 ambulatory [facility] Work Phone: Start: 09-03-2022 End: 02-24-2023 [facility] Start: 07-07-2022 End: 07-07-[address] Yonatan Hughes Work Phone: [facility] Work Phone: Start: 07-07-2022 End: 07-07-[address] Yonatan Hughes Work Phone: [facility]-Pulmonary Services/Neurology Start: 05-21-2022 End: 05-21-[address] Yonatan Hughes Work Phone: [facility] Work Phone: Start: 05-21-2022 End: 05-21-[address] [facility] Start: 04-08-2022 End: 04-08-[address] Yonatan Hughes Work Phone: [facility] Work Phone: Start: 04-08-2022 End: 04-08-[address] Yonatan Hughes Work Phone: [facility] Start: 03-31-2022 End: 03-31-[address] Yonatan Hughes Work Phone: [facility] Work Phone: Start: 03-31-2022 End: 03-31-[address] [facility] Start: 03-22-2022 End: 03-22-[address] Yonatan Hughes Work Phone: [facility] Start: 03-11-2022 End: 03-11-2022 ambulatory [facility] Work Phone: Start: 03-11-2022 End: 03-11-2022 [facility] Start: 11-13-2021 End: 11-13-2021 Patient encounter procedure [facility]-Laboratory Start: 08-18-2021 End: 08-18-2021 Patient encounter procedure [facility]-Laboratory Start: 10-17-2017 End: 10-18-2017 Ambulatory Annita Reeder Facility:[facility] Start: 04-27-2017 End: 04-27-2017 Ambulatory Kirit [place] Facility:Kirit young MD Procedures Date Procedure Procedure Detail Performing Clinician Start: 03-31-2023 Dual energy X-ray absorptiometry Dr. Yonatan Hughes Work Phone: Start: 03-21-2023 Screening mammography Shana Hughes Work Phone: Start: 04-08-[address] Yonatan cho Work Phone: Influenza Types A,B Direct FA (LOBITO) Dr. Yonatan Hughes Work Phone: Influenza Types A,B Direct FA (LOBITO) Respiratory syncytia l virus antigen assay Dr. Yonatan Hughes Work Phone: Respiratory syncytia l virus antigen assay Plan of Treatment Date Care Activity Detail Author Start: 03-10-2023 Procedure [facility] DXA Bone [Mass/Area] Bone density [facility] MG Breast - bilatera l Screening [facility] Immunizations Immunization Date Immunization Notes Care Provider Fa cility 10-07-2020 Covid (Pfizer) [facility] 09-16-2020 Covid (Pfizer) [facility] Payers Date Payer Category Payer Medicare [id number] 2024 Self-pay [id number] 2024 Unknown [id number] 2017 Unknown 2016 Unknown [id number] Unknown [id number] [id number] [id number] Unknown [id number] [id number] [id number] Unknown [id number] [id number] Unknown [id number] [id number] Unknown [id number] [id number] Unknown [id number] [id number] [id number] Social History Date Type Detail Facility Start: 03-18-2021 End: 03-24-2023 Tobacco smoking status IDIS Unknown if ever smoked [facility] Start: 1955 Sex Assigned At Female [facility] Start: 03-24-2023 Tobacco smoking stat [facility] Never smoked tobacco (finding) [facility] Sex Female [facility] Evaluation note Note Date & Type Note Facility Evaluation note No assessment information availa ble [facility] Work Phone: Evaluation note Note Date & Type Note Facility Evaluation note Diagnosis Onset Date Encounter for routine gyneco logical examination noneactive [facility] Work Phone: Evaluation note Note Date & Type Note Facility Evaluation note Diagnosis Onset Date Osteoporosis acute Encounter for routine gyneco logical examination noneactive [facility] Work Phone: Reason for referral (narrative) Note Date & Type Note Facility Reason for referral (narrative) No reason for referral information available [facility] Work Phone: Summary Purpose Family History No Family History Records Found Relationship Condition Age at Onset Recorded Date/T evans mother Malignant neoplasm Unknown father Cardiac disease Unknown Congestive heart failure Unknown Advance Directives No Advanced Directives Records FoundNo Advanced Directives Records FoundNo Advanced Directives Records Found Chief Complaint and Reason for Visit 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 Encounter for routin e gynecological examination Chief Complaint 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) NICOTINE DEPENDENCE Reason for Visit Encounter for routin e gynecological examination Chief Complaint 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) NICOTINE DEPENDENCE VIRAL SYMPTOMS Reason for Visit Encounter for routin e gynecological examination Chief Complaint VIRAL SYMPTOMS THYROTOXICOSIS WITH DIFFUSE GOITER Chief Complaint SCREENING 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 DATE CREATED AUTHOR AUTHOR'S ORGANIZ ATION 11/18/2020 [facility] DATE CREATED AUTHOR AUTHOR'S ORGANIZ ATION 04/18/2025 [facility] Goals (unrecognized section and content) Goals may be documented in a n alternate sectionGoals may be documented in an alternate sectionGoals may be documented in an alternate sectionGoals may be documented in an alternate sectionGoals may be documented in an alternate sectionGoals may be documented in an alternate sectionGoals may be documented in an alternate sectionGoals may be documented in an alternate sectionGoals may be documented in an alternate sectionGoals may be documented in an alternate sectionGoals may be documented in an alternate sectionGoals may be documented in an alternate sectionGoals may be documented in an alternate sectionGoals may be documented in an alternate sectionGoals may be documented in an alternate section Care Teams (unrecognized sec tion and content) Team Status: Active Member Role Status Dates Dr. Yonatan Hughes MD Family Provider Active Team Status: Inactive Member Role Status Dates Dr. Yonatan Hughes MD Primary Care Provider Active Dr. Annita Reeder MD Attending Provider, Referring Pro vider Active Team Status: Active Member Role Status Dates Dr. Yonatan Hughes MD Family Provider Active Dr. Yonatan Hughes MD Primary Care Provider Active Team Status: Inactive Member Role Status Dates Dr. Yonatan Hughes MD Primary Care Provider, Attending Provider Active Team Status: Inactive Member Role Status Dates Dr. Yonatan Hughes MD Referring Provider Active Dr. Chante Galvin MD Attending Provider Active Team Status: Inactive Member Role Status Dates Dr. Chante Galvin MD Attending Provider, Referr ing Provider Active Team Status: Inactive Member Role Status Dates Dr. Chante Galvin MD Attending Provider, Referr ing Provider Active Dr. Yonatan Hughes MD Primary Care Provider Active Team Status: Inactive Member Role Status Dates Dr. Yonatan Hughes MD Primary Care Provider Active Dr. Annita Reeder MD Attending Provider Active Team Status: Inactive Member Role Status Dates Dr. Yonatan Hughes MD Primary Care Provider Active Start: August 24, 2024 End: August 24, 2024 Dr. Annita Reeder MD Attending Provider Active S tart: August 24, 2024 End: August 24, 2024 Dr. Annita Reeder MD Referring Provider Active S tart: August 24, 2024 End: August 24, 2024 Team Status: Inactive Member Role Status Dates Dr. Yonatan Hughes MD Primary Care Provider Active Start: November 22, 2024 End: November 22, 2024 Dr. Annita Reeder MD Attending Provider Active S tart: November 22, 2024 End: November 22, 2024 Dr. Annita Reeder MD Referring Provider Active S tart: November 22, 2024 End: November 22, 2024 Team Status: Active Member Role/Relationship Status Dates Dr. Yonatan Hughes MD Primary care physician Active Team Status: Inactive Member Role/Relationship Status Dates Dr. Yonatan Hughes MD Primary care physician Active Start: March 12, 2025 End: March 12, 2025 Dr. Annita Reeder MD Attending physician Active Start: March 12, 2025 End: March 12, 2025 Dr. Annita Reeder MD Referring Provider Active S tart: March 12, 2025 End: March 12, 2025 FOR RECORDS PERTAINING TO PATIENTS WHO ARE [...] BE BASED ON THE PRIMARY CLINICAL RECORDS. [employer] provides no warranty or guarantee of the accuracy or completeness of information in this document.
== END | disposition home or self-care (01) ==
LOC: CT 16:40
PROVIDERS: PCP Family Medicine Geriatric Medicine; Referring Provider Family Medicine Geriatric Medicine; Visit Provider Family Medicine Geriatric Medicine
DX: Z87.891 Personal history of nicotine dependence (principal)
CPT/HCPCS: 71271

== ENCOUNTER → 2025-05-16 | Outpatient (CLI) | payer MEDICARE, OTHER, SELFPAY | END | disposition home or self-care (01) | LOC: LAB 09:17 | PROVIDERS: PCP Family Medicine Geriatric Medicine; Referring Provider Internal Medicine Endocrinology, Diabetes & Metabolism; Visit Provider Internal Medicine Endocrinology, Diabetes & Metabolism | DX: E05.00 Thyrotoxicosis with diffuse goiter without thyrotoxic crisis or storm (principal) | CPT/HCPCS: 36415; 84439; 84443 ==